=== PATIENT | female | born 1945 | race Caucasian/White ===

== ENCOUNTER 2017-01-05 15:07 | Inpatient (IN) ==
--- NOTE | 2017-01-05 15:44 | Emergency Department Note ---
Disposition Clinical Impression: TIA (transient ischemic attack) Qualifiers: Transient cerebral ischemia type: unspecified Qualified Code(s): G45.9 - Transient cerebral ischemic attack, unspecified Disposition: Admitted As Inpatient Condition: Good Neuro HPI - General Chief Complaint: ED Neuro Symptoms/Deficit Stated Complaint: numbness to left side Time Seen by Provider: 01/05/17 15:08 Source: patient, EMS Limitations: no limitations Nursing Notes Reviewed: Yes Vital Signs Reviewed: Yes - History of Present Illness HPI Narrative: Patient presents by EMS for evaluation of slurred speech and left-sided weakness causing her to have difficulty of ambulation. This was noted by the at -home nurse that was taking care of her. EMS arrived and symptoms of artery started to begin to resolve. Patient states that she has no current symptoms. Patient states she has had some exertional dyspnea over the last several months that has not been better worse with anything in particular. She complains of fatigue is also been going on and getting progressively worse. Patient has no history of TIA. Last cardiac evaluation she states was proximally 2 years ago with cardiac catheter. At this time the patient will go further evaluation for possible TIA. Will check TSH as well as cardiac enzymes. - Related Data Home Medications: Home Medications Medication Instructions Recorded Confirmed Albuterol Sulfate [Ventolin Hfa] 2 puff IH Q4H 01/05/17 01/05/17 Aspirin Enteric Coated [Aspirin EC] 81 mg PO DAILY 01/05/17 01/05/17 Carisoprodol [Soma] 350 mg PO BID PRN 01/05/17 01/05/17 Cholecalciferol (D-3) [Vitamin D] 1,000 unit PO DAILY 01/05/17 01/05/17 Cyanocobalamin (Vitamin B-12) 1,000 mcg PO DAILY 01/05/17 01/05/17 [Vitamin B-12] Lisinopril/Hydrochlorothiazide 1 each PO DAILY 01/05/17 01/05/17 [Zestoretic 20-12.5 mg Tablet] Multivit with Calcium,Iron,Min 1 each PO DAILY 01/05/17 01/05/17 [One Daily Women's] [place]-3/Dha/Epa/Fish Oil [Fish Oil 1 each PO DAILY 01/05/17 01/05/17 1,000 mg Softgel] OxyCODONE/APAP 5/325 [Percocet 1 each PO Q8H PRN 01/05/17 01/05/17 5/325 MG] Potassium Citrate [Urocit-K] 15 meq PO BID 01/05/17 01/05/17 diazePAM [Valium] 10 mg PO BID PRN 01/05/17 01/05/17 Allergies/Adverse Reactions: Allergies Allergy/AdvReac Type Severity Reaction Status Date / Time acetaminophen AdvReac Mild Nausea Verified 01/05/17 21:44 [From Darvocet-N] gabapentin [From Neurontin] AdvReac Mild See Verified 01/05/17 21:43 Comments propoxyphene AdvReac Mild Nausea Unverified 01/05/17 21:44 Review of Systems: GENERAL: ~Fatigue No weight change, change in appetite, thirst, fever or chills. HEENT: ~No headache or blurred vision. CARDIOPULMONARY: ~No chest pain, palpitations or shortness of breath. GASTROINTESTINAL: ~No anorexia, nausea or vomiting. GENITOURINARY: ~No dysuria or pyuria. ENDOCRINE: ~No goiter, lethargy or heat/cold intolerance. HEMATOLOGY/ONCOLOGY: ~No pallor, bruising or bleeding. MUSCULOSKELETAL: ~No change in strength. No swelling. NEUROLOGIC: ~Slurred speech and left-sided weakness causing difficulty with ambulation. No headache or loss of consciousness. PSYCHIATRIC: ~No change in personality, affect or depression. Past Medical History - Past Medical History Medical history: Reports: COPD, fibromyalgia, other Psychiatric history: Reports: anxiety, depression - Social History Smoking Status: Current every day smoker Alcohol use: Reports: none Drug use: Reports: marijuana Physical Exam General: Well appearing, nontoxic, no acute distress Head: Normocephalic Atraumatic Eyes: PERRL, EOMI ENT: Airway patent, no stridor Neck: supple, no meningismus Chest: Lungs clear to auscultation bilateral Cardiac: Regular rate and rhythm, no murmurs, rubs or gallops Abdomen: soft, nontender, nondistended; no guarding, rebound, or tenderness to percussion Musculoskeletal: Calves symmetric, nontender, no palpable cord Skin: No rash, normal skin tone Neuro: Alert and Oriented to person, place, and time; No focal deficit, CN 2-12 symmetric and intact - General Limitations: no limitations General appearance: alert, in no apparent distress Course - Consultations Consultation #1: Discussed with Dr. Major. Patient accepted for admission. Vital Signs Temperature 98 F 01/05/17 15:08 Pulse Rate 83 01/05/17 15:08 Respiratory Rate 18 01/05/17 15:08 Blood Pressure 136/91 01/05/17 15:08 O2 Sat by Pulse Oximetry 93 01/05/17 15:08 Temperature 97.7 F 01/05/17 20:56 Pulse Rate 81 01/05/17 20:56 Respiratory Rate 16 01/05/17 20:56 Blood Pressure 168/90 01/05/17 20:56 O2 Sat by Pulse Oximetry 97 01/05/17 20:56 Oxygen Delivery Oxygen Delivery Room Air Neuro Symptoms/Deficit - Lab Data Result diagrams: 01/05/17 15:42 01/05/17 15:42 Lab Results 01/05/17 01/05/17 01/05/17 Range/Units 15:33 15:42 15:42 WBC 9.5 (4.3-11.1) K/mcL RBC 5.16 H (3.82-4.97) M/mcL Hgb 15.9 H (11.5-15.4) g/dL Hct 47.8 H (35.3-44.9) % MCV 92.6 (83.0-100.0) fL MCH 30.8 (28.0-33.3) pg MCHC 33.3 (31.6-35.5) g/dL RDW 13.5 (11.5-14.5) % Plt Count 221 (140-400) K/mcL MPV 10.2 (9.4-12.4) fL Immature Gran % 0.4 (0-4) % Seg Neutrophils % 64.1 % Lymphocytes % 28.3 % Monocytes % 5.1 % Eosinophils % 1.5 % Basophils % 0.6 % Neutrophils # 6.1 (1.6-8.9) K/mcL Lymphocytes # 2.7 (0.6-4.6) K/mcL Monocytes # 0.5 (0.0-1.3) K/mcL Eosinophils # 0.1 (0.0-0.6) K/mcL Basophils # 0.1 (0.0-0.2) K/mcL PT 11.3 (9.4-12.1) Seconds INR 1.1 APTT 32.1 (26.0-36.0) Seconds Sodium (136-145) mEq/L Potassium (3.5-4.5) mEq/L Chloride (98-109) mEq/L Carbon Dioxide (19-29) mEq/L BUN (7-20) mg/dL Creatinine (0.57-1.11) mg/dL Est GFR ( Amer) (> 60) Est GFR (Non-Af Amer) (> 60) BUN/Creatinine Ratio (6-26) Glucose (70-99) mg/dL POC Glucose 97 H (58-89) Calculated Osmolality (280-300) Calcium (8.6-10.8) mg/dL Troponin I (0-0.03) ng/mL B-Natriuretic Peptide (0-100) pg/mL TSH (0.350-4.840) mcIU/mL Urine Color (Yellow) Urine Clarity (Clear) Urine pH (5.0-8.0) pH Units Ur Specific [place] (1.010-1.025) Urine Protein (Neg-Trace) mg/dL Urine Glucose (UA) (Normal) mg/dL Urine Ketones (Negative) mg/dL Urine Blood (Negative) Urine Nitrite (Negative) Urine Bilirubin (Negative) Urine Urobilinogen (Normal) mg/dL Ur Leukocyte Esterase (Negative) Ur Culture Indicated? (NO) 01/05/17 01/05/17 01/05/17 Range/Units 15:42 15:42 15:44 WBC (4.3-11.1) K/mcL RBC (3.82-4.97) M/mcL Hgb (11.5-15.4) g/dL Hct (35.3-44.9) % MCV (83.0-100.0) fL MCH (28.0-33.3) pg MCHC (31.6-35.5) g/dL RDW (11.5-14.5) % Plt Count (140-400) K/mcL MPV (9.4-12.4) fL Immature Gran % (0-4) % Seg Neutrophils % % Lymphocytes % % Monocytes % % Eosinophils % % Basophils % % Neutrophils # (1.6-8.9) K/mcL Lymphocytes # (0.6-4.6) K/mcL Monocytes # (0.0-1.3) K/mcL Eosinophils # (0.0-0.6) K/mcL Basophils # (0.0-0.2) K/mcL PT (9.4-12.1) Seconds INR APTT (26.0-36.0) Seconds Sodium 139 (136-145) mEq/L Potassium 4.1 (3.5-4.5) mEq/L Chloride 103 (98-109) mEq/L Carbon Dioxide 27 (19-29) mEq/L BUN 15 (7-20) mg/dL Creatinine 1.16 H (0.57-1.11) mg/dL Est GFR ( Amer) 56 L (> 60) Est GFR (Non-Af Amer) 46 L (> 60) BUN/Creatinine Ratio 13 (6-26) Glucose 96 (70-99) mg/dL POC Glucose (58-89) Calculated Osmolality 289 (280-300) Calcium 10.2 (8.6-10.8) mg/dL Troponin I 0.00 (0-0.03) ng/mL B-Natriuretic Peptide 17 (0-100) pg/mL TSH 1.264 (0.350-4.840) mcIU/mL Urine Color (Yellow) Urine Clarity (Clear) Urine pH (5.0-8.0) pH Units Ur Specific [place] (1.010-1.025) Urine Protein (Neg-Trace) mg/dL Urine Glucose (UA) (Normal) mg/dL Urine Ketones (Negative) mg/dL Urine Blood (Negative) Urine Nitrite (Negative) Urine Bilirubin (Negative) Urine Urobilinogen (Normal) mg/dL Ur Leukocyte Esterase (Negative) Ur Culture Indicated? (NO) 01/05/17 Range/Units 18:00 WBC (4.3-11.1) K/mcL RBC (3.82-4.97) M/mcL Hgb (11.5-15.4) g/dL Hct (35.3-44.9) % MCV (83.0-100.0) fL MCH (28.0-33.3) pg MCHC (31.6-35.5) g/dL RDW (11.5-14.5) % Plt Count (140-400) K/mcL MPV (9.4-12.4) fL Immature Gran % (0-4) % Seg Neutrophils % % Lymphocytes % % Monocytes % % Eosinophils % % Basophils % % Neutrophils # (1.6-8.9) K/mcL Lymphocytes # (0.6-4.6) K/mcL Monocytes # (0.0-1.3) K/mcL Eosinophils # (0.0-0.6) K/mcL Basophils # (0.0-0.2) K/mcL PT (9.4-12.1) Seconds INR APTT (26.0-36.0) Seconds Sodium (136-145) mEq/L Potassium (3.5-4.5) mEq/L Chloride (98-109) mEq/L Carbon Dioxide (19-29) mEq/L BUN (7-20) mg/dL Creatinine (0.57-1.11) mg/dL Est GFR ( Amer) (> 60) Est GFR (Non-Af Amer) (> 60) BUN/Creatinine Ratio (6-26) Glucose (70-99) mg/dL POC Glucose (58-89) Calculated Osmolality (280-300) Calcium (8.6-10.8) mg/dL Troponin I (0-0.03) ng/mL B-Natriuretic Peptide (0-100) pg/mL TSH (0.350-4.840) mcIU/mL Urine Color Yellow (Yellow) Urine Clarity Clear (Clear) Urine pH 6.0 (5.0-8.0) pH Units Ur Specific [place] 1.014 (1.010-1.025) Urine Protein Negative (Neg-Trace) mg/dL Urine Glucose (UA) Normal (Normal) mg/dL Urine Ketones Negative (Negative) mg/dL Urine Blood Negative (Negative) Urine Nitrite Negative (Negative) Urine Bilirubin Negative (Negative) Urine Urobilinogen Normal (Normal) mg/dL Ur Leukocyte Esterase Negative (Negative) Ur Culture Indicated? NO (NO) TPA Checklist - LKW: 3-4.5 hrs Add. Warnings/Precautions Patient/family understanding: The patient/family members have been counseled and understood the risk, benefit , and alternatives of treatment. Attestation Statement - Attestation Attestation: I, Yuriy Carr, examined this patient and my medical decision-making was reviewed with the CADMIUM PLATER/PA/Advanced Practice Nurse/Resident Physician. I agree with the documented findings, disposition and treatment plan as described except to the extent set forth below. 71-year-old female presents emergency Department with concerns of increasing weakness and fatigue. Patient is a poor historian however home health nurse called EMS secondary to possible slurred speech and difficulty with ambulation. Patient denies slurred speech or if coldly with her gait. EMS states that patient was able to ambulate to the EMS truck without difficulty. Patient reports she has been increasingly fatigued and dyspneic on exertion over the past few days prior to arrival. Patient is unable to recall her last cardiac evaluation. We will obtain CT of the head for the slurred speech, troponin and EKG for evaluation of the weakness and fatigue. Patient will likely be admitted to the hospital pending further evaluation.
[2017-01-05 15:55] LABS: Basophils # 0.1 K/mcL (0.0-0.2); Basophils % 0.6 %; Eosinophils # 0.1 K/mcL (0.0-0.6); Eosinophils % 1.5 %; Hematocrit 47.8 % (35.3-44.9); Hemoglobin 15.9 g/dL (11.5-15.4); Immature Granulocytes % 0.4 % (0-4); Lymphocytes # 2.7 K/mcL (0.6-4.6); Lymphocytes % 28.3 %; Mean Corpuscular HGB Conc 33.3 g/dL (31.6-35.5); Mean Corpuscular Hemoglobin 30.8 pg (28.0-33.3); Mean Corpuscular Volume 92.6 fL (83.0-100.0); Mean Platelet Volume 10.2 fL (9.4-12.4); Monocytes # 0.5 K/mcL (0.0-1.3); Monocytes % 5.1 %; Neutrophils # 6.1 K/mcL (1.6-8.9); Platelet Count 221 K/mcL (140-400); Red Blood Count 5.16 M/mcL (3.82-4.97); Red Cell Distribution Width 13.5 % (11.5-14.5); Segmented Neutrophils % 64.1 %
[2017-01-05 16:02] LABS: INR 1.1; Prothrombin Time 11.3 Seconds (9.4-12.1)
[2017-01-05 16:05] LABS: Activated Partial Thrombo Time 32.1 Seconds (26.0-36.0)
[2017-01-05 16:08] LABS: Calcium 10.2 mg/dL (8.6-10.8); Potassium 4.1 mEq/L (3.5-4.5)
[2017-01-05 17:43] LABS: Thyroid Stimulating Hormone 1.264 mcIU/mL (0.350-4.840)
[2017-01-05 18:39] LABS: Bilirubin,Urine Negative (Negative); Blood,Urine Negative (Negative); Clarity,Urine Clear (Clear); Color,Urine Yellow (Yellow); Glucose,Urine (UA) Normal (Normal); Ketones,Urine Negative (Negative); Leukocyte Esterase,Urine Negative (Negative); Nitrite,Urine Negative (Negative); Protein,Urine Negative (Neg-Trace); Specific Gravity,Urine 1.014 (1.010-1.025); Urobilinogen,Urine Normal (Normal)
[2017-01-05] MEDS ORDERED: Naloxone 0.4 MG/ML INJ IVP PRN (19:34)
[2017-01-05] MEDS ORDERED: *HR* OxyCODONE Immed Rel 5 MG TABLET PO PRN (20:19)
[2017-01-05] MEDS ORDERED: Ondansetron 4 MG/2 ML VIAL IVP PRN (20:19)
--- NOTE | 2017-01-05 20:22 | Internal Med History&Physical ---
Addendum entered and electronically signed by Benson Conner DO 01/05/17 22:15: Physical exam: AOx3, NAD, resting comfortably. Neuro: NIH score 0. No sensory or motor deficits. CN II-XII intact Cardio: RRR, no murmurs Respiratory: Mild wheezing diffusely, worse on left. Psych: Appropriate mood and behavior. Original Note: <Benson Conner - Last Filed: 01/05/17 22:14> Date of Encounter: 01/05/17 Time of Encounter: 20:22 Assessment and Plan (1) TIA (transient ischemic attack) Current visit: Yes Status: Acute - Onset of dysarthria, numbness and possible left sided weakness began 2 days ago, out of window for thrombolysis - CT head in ED was negative for acute process. MRI pending. - Echocardiogram, carotid US, lipid panel pending - Given full dose asa in ED. Continue ASA, statin. Holding BP meds, allowing for permissive HTN - PT/OT consulted, bedside swallow pending. Qualifiers: Transient cerebral ischemia type: unspecified Qualified Code(s): G45.9 - Transient cerebral ischemic attack, unspecified (2) HTN (hypertension) Current visit: Yes Status: Chronic - BP wnl upon presentation. Systolic 160s during time of interview. - Holding BP meds and allowing for permissive HTN Qualifiers: Hypertension type: essential hypertension Qualified Code(s): I10 - Essential (primary) hypertension (3) CAD (coronary artery disease) Current visit: Yes Status: Chronic - History of stress test and LHC without stent placement - No chest pain reported. - EKG ordered. - Continue ASA, statin for TIA above. Qualifiers: Coronary Disease-Associated Artery/Lesion type: [place] artery [place] vs. transplanted heart: [place] heart Associated angina: without angina Qualified Code(s): I25.10 - Atherosclerotic heart disease of [place] coronary artery without angina pectoris (4) COPD (chronic obstructive pulmonary disease) Current visit: Yes Status: Chronic Reported history of COPD - Sees a library media assistant in [place] - Dyspnea on exertion, however is tolerating room air speaking in full sentences during time of interview. - Continue home meds, O2 titration as needed. Qualifiers: COPD type: emphysema Emphysema type: unspecified Qualified Code(s): J43.9 - Emphysema, unspecified (5) Fibromyalgia Current visit: Yes Status: Chronic - Pain control as needed during admission. - Management as outpatient. (6) HLD (hyperlipidemia) Current visit: Yes Status: Acute Reported history of HLD - Admits to non compliance on statin due to side effects - Lipid panel pending, high dose statin for TIA Qualifiers: Hyperlipidemia type: unspecified Qualified Code(s): E78.5 - Hyperlipidemia , unspecified (7) DVT prophylaxis Current visit: Yes Status: Acute Heparin 5000 units q8 Internal Medicine - H&P: HPI Chief complaint: slurred speech Admitted From: Emergency Dept Plans for Post Hospital Care: Home History of present illness: Ms. Whipple is a 71 year old female who presents to ED with a complaint of slurred speech which was noticed by her home health aide this morning as well as sunday. She states that she did not notice that anything was wrong. She does complain of some left sided facial numbness which has been present for some time. She also complains of diffuse pain including the chest and left shoulder but attributes this to her fibromyalgia. She also complains of some SOB on exertion, but this is at her baseline due to COPD. She also admits to lightheadedness intermittently, and infrequent palpitations. She states her neurological symptoms resolved on their own without treatment upon arriving to the ED. She denies any symptoms of fevers, chills, recent illness, nausea, vomiting, abdominal pain, dysuria. Does have some complaint of constipation. She also admits to medication non compliance for her statin and BP meds as she does not like how they make her feel. She has had a cardiac workup in the past, including stress test and LHC without stents placed and reports they were normal , however she does not remember when. In ED, CT head was negative for acute process. Vital signs wnl. Labs at baseline. Past Med Surg Social Fam HX - Past Medical History Medical history: cancer (kidney s/p resection), COPD, coronary artery disease, fibromyalgia, hyperlipidemia, other Psychiatric history: anxiety, depression - Past Surgical History Surgical History: hysterectomy - Social History Smoking Status: Current every day smoker Alcohol use: none Drug use: marijuana - Family History Sister Hx Family Endocrine Disorder: Yes (dm) Internal Medicine - H&P: Meds Albuterol Sulfate [Ventolin Hfa] 2 puff IH Q4H 01/05/17 [History] Aspirin Enteric Coated [Aspirin EC] 81 mg PO DAILY 01/05/17 [History] Carisoprodol [Soma] 350 mg PO BID PRN 01/05/17 [History] Cholecalciferol (D-3) [Vitamin D] 1,000 unit PO DAILY 01/05/17 [History] Cyanocobalamin (Vitamin B-12) [Vitamin B-12] 1,000 mcg PO DAILY 01/05/17 [ History] Lisinopril/Hydrochlorothiazide [Zestoretic 20-12.5 mg Tablet] 1 each PO DAILY [History] Multivit with Calcium,Iron,Min [One Daily Women's] 1 each PO DAILY 01/05/17 [ History] [place]-3/Dha/Epa/Fish Oil [Fish Oil 1,000 mg Softgel] 1 each PO DAILY 01/05/17 [ History] OxyCODONE/APAP 5/325 [Percocet 5/325 MG] 1 each PO Q8H PRN 01/05/17 [History] Potassium Citrate [Urocit-K] 15 meq PO BID 01/05/17 [History] diazePAM [Valium] 10 mg PO BID PRN 01/05/17 [History] 3 Allergy/AdvReac Type Severity Reaction Status Date / Time acetaminophen AdvReac Mild Nausea Verified 01/05/17 21:44 [From Darvocet-N] gabapentin [From Neurontin] AdvReac Mild See Verified 01/05/17 21:43 Comments propoxyphene AdvReac Mild Nausea Unverified 01/05/17 21:44 All Systems PM: A 10-system review of systems was performed and is negative for pertinent findings except as documented above in the HPI. - Constitutional Constitutional: fatigue, lethargy, no anorexia, no chills, no fever(s), no weakness - EENT Eyes: no change in vision - Cardiovascular Cardiovascular ROS IM: dyspnea on exertion, palpitations, no chest pain, no diaphoresis, no dyspnea, no edema - Respiratory Respiratory: dyspnea on exertion, no cough, no dyspnea - Gastrointestinal Gastrointestinal: constipation, no abdominal pain, no change in bowel habits, no diarrhea, no nausea, no vomiting - Genitourinary Genitourinary: no dysuria - Musculoskeletal Musculoskeletal ROS IM: no numbness, no tingling - Neurological Neurological ROS: abnormal speech, dizziness, no abnormal gait, no confusion, no loss of vision, no tingling, no weakness - Constitutional Vitals: Temp Pulse Resp BP Pulse Ox 98 F 73 16 126/87 94 01/05/17 15:08 01/05/17 16:31 01/05/17 16:31 01/05/17 16:31 01/05/17 16:31 Internal Med - H&P Results - Labs CBC & Chem 7: 01/05/17 15:42 01/05/17 15:42 <Nic Mckinney - Last Filed: 01/05/17 23:41> Date of Encounter: 01/05/17 All Systems PM: A 10-system review of systems was performed and is negative for pertinent findings except as documented above in the HPI. - Constitutional Vitals: Temp Pulse Resp BP Pulse Ox 97.7 F 89 16 128/83 97 01/05/17 20:56 01/05/17 23:13 01/05/17 20:56 01/05/17 23:13 01/05/17 20:56 Internal Med - H&P Results - Labs CBC & Chem 7: 01/05/17 15:42 01/05/17 15:42 - Attending Attestation I examined this patient and my medical decision-making was reviewed with the RETORT FURNACE HELPER. I agree with the documented findings, disposition and treatment plan as described except to the extent set forth below. Patient is a 71-year-old female with past medical history of COPD, coronary artery disease, probably moderate, hyperlipidemia, anxiety and depression. She is a current daily smoker. She presents to the ED with complaints of slurred speech and left-sided facial numbness. Initial workup including CT head is negative. MRI of the brain was also done and is negative. Patient's symptoms are now completely resolved. Patient is being admitted for TIA. She will need to continue aspirin and statin. We will also restart her home medications the morning. No other acute events or complaints. Heart rate 89, blood pressure 128/83, O2 97% on room air. Heart S1 and S2 positive. Lungs: Good air entry no wheeze or crackles. Abdomen soft nontender no masses or guarding. Neurological awake and alert, no focal neurological deficits, cranial nerves intact.
[2017-01-05] MEDS ORDERED: Carisoprodol 350 MG TABLET PO PRN (20:44)
[2017-01-05] MEDS: *HR* Heparin 5,000 UNIT/ML VIAL SQ SCH (22:10)
[2017-01-05] MEDS: diazePAM 10 MG TABLET PO PRN (22:10)
[2017-01-06 05:26] LABS: Basophils % 0.5 %; Eosinophils # 0.2 K/mcL (0.0-0.6); Eosinophils % 1.8 %; Hematocrit 45.5 % (35.3-44.9); Hemoglobin 15.5 g/dL (11.5-15.4); Immature Granulocytes % 0.2 % (0-4); Lymphocytes # 3.5 K/mcL (0.6-4.6); Lymphocytes % 39.7 %; Mean Corpuscular HGB Conc 34.1 g/dL (31.6-35.5); Mean Corpuscular Hemoglobin 31.5 pg (28.0-33.3); Mean Corpuscular Volume 92.5 fL (83.0-100.0); Mean Platelet Volume 10.9 fL (9.4-12.4); Monocytes # 0.5 K/mcL (0.0-1.3); Monocytes % 5.5 %; Neutrophils # 4.6 K/mcL (1.6-8.9); Platelet Count 219 K/mcL (140-400); Red Blood Count 4.92 M/mcL (3.82-4.97); Red Cell Distribution Width 13.5 % (11.5-14.5); Segmented Neutrophils % 52.3 %
[2017-01-06 05:42] LABS: BUN/Creatinine Ratio 15 (6-26); Blood Urea Nitrogen 16 mg/dL (7-20); Calcium 9.4 mg/dL (8.6-10.8); Carbon Dioxide 27 mEq/L (19-29); Chloride 106 mEq/L (98-109); Chol/HDL Ratio 4.9 (0-4.9); Cholesterol 192 mg/dL (< 200); Glucose 105 mg/dL (70-99); HDL Cholesterol 39 mg/dL (40-59); LDL Cholesterol,Calculated 121 mg/dL (0-99); Osmolality,Calculated 296 (280-300); Potassium 3.2 mEq/L (3.5-4.5); Sodium 142 mEq/L (136-145); Triglycerides 158 mg/dL (< 150); eGFR For African Americans > 60 (> 60); eGFR For Non-African Americans 50 (> 60)
[2017-01-06] MEDS: *HR* Heparin 5,000 UNIT/ML VIAL SQ SCH ×2 (05:47→15:44)
[2017-01-06] MEDS: diazePAM 10 MG TABLET PO PRN (08:31)
[2017-01-06] MEDS ORDERED: Aspirin 81 MG TAB.CHEW PO SCH (09:00)
[2017-01-06] MEDS ORDERED: Nicotine 14 MG PATCH.TD24 TD SCH (09:15)
[2017-01-06] MEDS ORDERED: Magnesium Sulfate 2 GM in D5% in Water 100 ML IVPB ONE (14:38)
--- NOTE | 2017-01-06 14:42 | Discharge Summary ---
Date of Encounter: 01/06/17 Time of Encounter: 08:40 - Discharge Diagnosis (1) TIA (transient ischemic attack) Priority: Primary Status: Acute Comments: Transient ischemic attack - with dysarthria and left-sided weakness and numbness about 48 hours prior to admission - symptoms have completely resolved Continue Aspirin, Lipitor CT head - no acute intracranial abnormality MRI brain - no acute infarct Echocardiogram - LVEF 55-60%, mild LV diastolic dysfunction, normal RV size and function EKG - normal sinus rhythm with no acute ST-T changes Troponin - negative Carotid Doppler - nonstenotic plaque bilaterally Chest x-ray - no acute cardiopulmonary process Advised to return if symptoms worsen, follow up with primary care physician Qualifiers: Transient cerebral ischemia type: unspecified Qualified Code(s): G45.9 - Transient cerebral ischemic attack, unspecified (2) HTN (hypertension) Priority: Secondary Status: Chronic Comments: Essential hypertension, controlled, monitor Continue home dose of Lisinopril/HCTZ Qualifiers: Hypertension type: essential hypertension Qualified Code(s): I10 - Essential (primary) hypertension (3) CAD (coronary artery disease) Priority: Secondary Status: Chronic Comments: Coronary artery disease, history of LHC without stent placement, stable Continue Aspirin, Lipitor EKG - sinus rhythm with no acute ST-T changes Troponin - negative Qualifiers: Coronary Disease-Associated Artery/Lesion type: [place] artery [place] vs. transplanted heart: [place] heart Associated angina: without angina Qualified Code(s): I25.10 - Atherosclerotic heart disease of [place] coronary artery without angina pectoris (4) COPD (chronic obstructive pulmonary disease) Priority: Secondary Status: Chronic Comments: COPD, stable, not in exacerbation Continue Ventolin HFA as needed Qualifiers: COPD type: emphysema Emphysema type: unspecified Qualified Code(s): J43.9 - Emphysema, unspecified (5) HLD (hyperlipidemia) Priority: Primary Status: Chronic Comments: Continue Lipitor Qualifiers: Hyperlipidemia type: unspecified Qualified Code(s): E78.5 - Hyperlipidemia , unspecified (6) Tobacco abuse Priority: Secondary Status: Chronic Comments: Counseled about cessation, nicotine patch (7) Fibromyalgia Priority: Secondary Status: Chronic - Discharge Medications Prescriptions: Aspirin Enteric Coated [Aspirin EC] 81 mg PO DAILY #30 tablet. Atorvastatin Calcium [Lipitor] 20 mg PO HS #30 tablet Home Medications: Albuterol Sulfate [Ventolin Hfa] 2 puff IH Q4H 01/05/17 [History] Carisoprodol [Soma] 350 mg PO BID PRN 01/05/17 [History] Cholecalciferol (D-3) [Vitamin D] 1,000 unit PO DAILY 01/05/17 [History] Cyanocobalamin (Vitamin B-12) [Vitamin B-12] 1,000 mcg PO DAILY 01/05/17 [ History] Lisinopril/Hydrochlorothiazide [Zestoretic 20-12.5 mg Tablet] 1 each PO DAILY [History] Multivit with Calcium,Iron,Min [One Daily Women's] 1 each PO DAILY 01/05/17 [ History] Almo-3/Dha/Epa/Fish Oil [Fish Oil 1,000 mg Softgel] 1 each PO DAILY 01/05/17 [ History] OxyCODONE/APAP 5/325 [Percocet 5/325 MG] 1 each PO Q8H PRN 01/05/17 [History] Potassium Citrate [Urocit-K] 15 meq PO BID 01/05/17 [History] diazePAM [Valium] 10 mg PO BID PRN 01/05/17 [History] Aspirin Enteric Coated [Aspirin EC] 81 mg PO DAILY #30 tablet. 01/06/17 [Rx] Atorvastatin Calcium [Lipitor] 20 mg PO HS #30 tablet 01/06/17 [Rx] Allergies/Adverse Reactions: 3 Allergy/AdvReac Type Severity Reaction Status Date / Time acetaminophen AdvReac Mild Nausea Verified 01/05/17 21:44 [From Darvocet-N] gabapentin [From Neurontin] AdvReac Mild See Verified 01/05/17 21:43 Comments propoxyphene AdvReac Mild Nausea Unverified 01/05/17 21:44 Procedures/tests Complete & Pending: Procedures Performed prior 72 hours Category Date Time Status ECG 12 lead ECG [ECG] Routine Y 01/05/17 20:43 Ordered EV carotid duplex imaging BI Routine Y 01/06/17 07:00 Completed Date of admission: 01/05/17 19:42 Primary care physician: Bryan Mai MD Consults: 01/05/17 20:21 Consult to Occupational Therapy [CONS] Routine Comment: Evaluate, develop and implement POC Reason for Consult: weakness Consult to Physical Therapy [CONS] Routine Comment: Evaluate, develop and implement POC Reason for Consult: weakness Anticipated date of discharge: 01/06/17 - Patient Status Disposition: Home, Self-Care Condition: Good Functional capacity at discharge: independent ambulation Overall status at discharge: patient is back to baseline - Discharge Instructions Instructions: Aspirin (By mouth), Atorvastatin (By mouth), Hypomagnesemia (DC) Follow Up With: Bryan Mai MD [Primary Care Provider] - (Appointment web requested. Office will contact patient at home to schedule appointment. ) - Diet and Activity Activity: increase activity as tolerated, resume usual activities as tolerated Diet: low fat, low cholesterol, low salt diet Hospital course: Ms. Whipple is a 71 year old female with past medical history of COPD, coronary artery disease, fibromyalgia, hyperlipidemia, anxiety and depression. She presented to the ED with complaints of slurred speech and left-sided facial numbness. She also complains of diffuse pain in the chest and left shoulder and stated that this was due to her fibromyalgia. Patient also initially complained of some mild shortness of breath. Complained of lightheadedness intermittently. Symptoms resolved quickly. Initial CT of the head is negative for any acute process. MRI of the brain did not show any acute infarct. Echocardiogram revealed LVEF 5560% with mild LV diastolic dysfunction. Patient was continued on aspirin and Lipitor. EKG shows normal sinus rhythm with no acute ST changes. Troponin is negative. Carotid Doppler shows nonstenotic plaque bilaterally. Chest x-ray does not show any acute process. Patient was continued on her home medications for hypertension including lisinopril and HCTZ. Patient was advised to continue Ventolin HFA for her COPD as needed. She has been counseled on smoking cessation. She has been advised to continue aspirin and Lipitor. Patient attributes all her symptoms to fibromyalgia and wants to continue her pain medication at home as well. She has been explained about her condition and plan of care in detail. She understood and agreed. No unanswered questions. Patient did not have any other acute events or complications during her stay. She is tolerating oral diet well and ambulating well. Patient is being discharged in stable condition. Time spent discussing smoking cessation with patient: 3 to 10 minutes - Time Spent with Patient Total time spent providing and/or coordinating discharge services: Less than 30 minutes - Constitutional Vitals: Temp Pulse Resp BP Pulse Ox 98.0 F 76 16 111/74 97 10/28/17 11:25 01/06/17 11:25 01/06/17 11:35 01/06/17 11:25 01/06/17 11:35 General appearance: Present: cooperative, A&O X 3, pleasant, no acute distress, underweight, answers questions appropriately - Head Head exam: Present: atraumatic - Eye Eye exam: Present: EOMI - ENT ENT exam: Present: mucous membranes moist - Respiratory Respiratory exam: Present: CTAB. Absent: rales, rhonchi, wheezes, tachypnea - Cardiovascular Cardiovascular exam: Present: RRR, +S1, +S2 - GI/Abdominal GI/Abdominal exam: Present: soft. Absent: distended, firm, guarding, tenderness - Extremities Exam Extremities exam: Present: radial pulses palpable and symmetrical. Absent: calf tenderness, cyanotic, pedal edema - Neurological Exam Neurological exam: Present: alert, CN II-XII intact, oriented X3, no focal deficits. Absent: facial droop, speech deficit
[2017-01-06 14:58] VITALS: BP 126/80
[2017-01-06] MEDS ORDERED: Multivit/Ca/Min/Fe/FA 1 TAB TABLET PO SCH (15:00)
[2017-01-06] MEDS ORDERED: Lisinopril-HCTZ 20-12.5mg TABLET PO SCH (15:00)
[2017-01-06] MEDS ORDERED: Cyanocobalamin (B-12) 1,000 MCG TABLET PO SCH (15:00)
--- NOTE | 2017-01-08 16:56 | Electrocardiograph Report ---
[place] [id number] Test Date: 2017-01-05 Pat Name: Jody Whipple Department: 113 Room: 3B Gender: F Dish Person: : 1945 Requested By: Benson Conner Order Number: [id number] Reading MD: Xuan Romero Measurements Intervals [place] Rate: 65 P: 71 MS: 151 QRS: 50 QRSD: 87 T: 65 QT: 410 QTc: 422 Interpretive Statements SINUS RHYTHM Electronically Signed On 01-08-2017 16:54:55 EDT by Xuan Romero
== END 2017-01-06 17:30 | disposition home or self-care (01) | DRG 69 ==
LOC: EMEROO 15:07 → 3BNU 15:07
PROVIDERS: ADMIT Family Medicine; ATTEND Registered Nurse

== ENCOUNTER 2017-04-08 20:21 | Inpatient (IN) ==
--- NOTE | 2017-04-08 20:23 | Emergency Department Note ---
Disposition Clinical Impression: Acute exacerbation of chronic obstructive airways disease, Cough Disposition: Admitted As Inpatient Condition: Good General Adult HPI - General Chief complaint: ED Shortness of Breath/Dyspnea Stated complaint: difficulty in breathing Time Seen by Provider: 04/08/17 20:22 - Related Data Home Medications Medication Instructions Recorded Confirmed Albuterol Sulfate [Ventolin Hfa] 2 puff IH Q4H 01/05/17 01/05/17 Carisoprodol [Soma] 350 mg PO BID PRN 01/05/17 01/05/17 Cholecalciferol (D-3) [Vitamin D] 1,000 unit PO DAILY 01/05/17 01/05/17 Cyanocobalamin (Vitamin B-12) 1,000 mcg PO DAILY 01/05/17 01/05/17 [Vitamin B-12] Lisinopril/Hydrochlorothiazide 1 each PO DAILY 01/05/17 01/05/17 [Zestoretic 20-12.5 mg Tablet] Multivit with Calcium,Iron,Min 1 each PO DAILY 01/05/17 01/05/17 [One Daily Women's] [place]-3/Dha/Epa/Fish Oil [Fish Oil 1 each PO DAILY 01/05/17 01/05/17 1,000 mg Softgel] OxyCODONE/APAP 5/325 [Percocet 1 each PO Q8H PRN 01/05/17 01/05/17 5/325 MG] Potassium Citrate [Urocit-K] 15 meq PO BID 01/05/17 01/05/17 diazePAM [Valium] 10 mg PO BID PRN 01/05/17 01/05/17 Previous Rx's Medication Instructions Recorded Aspirin Enteric Coated [Aspirin EC] 81 mg PO DAILY #30 tablet. 01/06/17 Atorvastatin Calcium [Lipitor] 20 mg PO HS #30 tablet 01/06/17 Allergies Allergy/AdvReac Type Severity Reaction Status Date / Time acetaminophen AdvReac Mild Nausea Verified 01/05/17 21:44 [From Darvocet-N] gabapentin [From Neurontin] AdvReac Mild See Verified 01/05/17 21:43 Comments propoxyphene AdvReac Mild Nausea Verified 04/08/17 20:55 Past Medical History - Past Medical History Medical history: Reports: COPD, fibromyalgia, other Surgical history: Reports: hysterectomy Psychiatric history: Reports: anxiety, depression - Social History Smoking Status: Current every day smoker Smokeless Tobacco Status: No Alcohol use: Reports: none Drug use: Reports: marijuana Course Vital Signs Temperature 100 F H 04/08/17 20:22 Pulse Rate 110 04/08/17 20:22 Respiratory Rate 24 04/08/17 20:22 Blood Pressure 147/90 04/08/17 20:22 O2 Sat by Pulse Oximetry 94 04/08/17 20:22 Temperature 99.6 F 04/08/17 22:55 Pulse Rate 100 04/08/17 22:55 Respiratory Rate 16 04/08/17 22:55 Blood Pressure 98/58 04/08/17 22:55 O2 Sat by Pulse Oximetry 94 04/08/17 23:32 Oxygen Delivery Oxygen Delivery Nasal Cannula Medical Decision Making - Lab Data Result diagrams: 04/08/17 20:31 04/08/17 20:31 Lab Results 04/08/17 04/08/17 04/08/17 Range/Units 20:31 20:31 20:31 WBC 6.7 (4.3-11.1) K/mcL RBC 5.61 H (3.82-4.97) M/mcL Hgb 16.9 H (11.5-15.4) g/dL Hct 50.9 H (35.3-44.9) % MCV 90.7 (83.0-100.0) fL MCH 30.1 (28.0-33.3) pg MCHC 33.2 (31.6-35.5) g/dL RDW 13.0 (11.5-14.5) % Plt Count 301 (140-400) K/mcL MPV 9.5 (9.4-12.4) fL Immature Gran % 0.3 (0-4) % Seg Neutrophils % 59.4 % Lymphocytes % 25.4 % Monocytes % 14.8 % Eosinophils % 0.0 % Basophils % 0.1 % Neutrophils # 4.0 (1.6-8.9) K/mcL Lymphocytes # 1.7 (0.6-4.6) K/mcL Monocytes # 1.0 (0.0-1.3) K/mcL Eosinophils # 0.0 (0.0-0.6) K/mcL Basophils # 0.0 (0.0-0.2) K/mcL Nucleated RBCs/100 WBC 0.3 H (0) /100 WBC Sodium 134 L (136-145) mEq/L Potassium 4.2 (3.5-5.1) mEq/L Chloride 99 (98-107) mEq/L Carbon Dioxide 27 (23-29) mEq/L BUN 25 H (8-23) mg/dL Creatinine 1.18 (0.60-1.20) mg/dL Est GFR ( Amer) 55 L (> 60) Est GFR (Non-Af Amer) 45 L (> 60) BUN/Creatinine Ratio 21 (6-26) Glucose 103 (70-105) mg/dL Calculated Osmolality 283 (280-300) Lactic Acid 1.2 (0.5-2.2) mmol/L Calcium 9.1 (8.6-10.3) mg/dL Troponin I (< 0.04) ng/mL B-Natriuretic Peptide (Less than 100) pg/mL 04/08/17 04/08/17 Range/Units 20:31 20:31 WBC (4.3-11.1) K/mcL RBC (3.82-4.97) M/mcL Hgb (11.5-15.4) g/dL Hct (35.3-44.9) % MCV (83.0-100.0) fL MCH (28.0-33.3) pg MCHC (31.6-35.5) g/dL RDW (11.5-14.5) % Plt Count (140-400) K/mcL MPV (9.4-12.4) fL Immature Gran % (0-4) % Seg Neutrophils % % Lymphocytes % % Monocytes % % Eosinophils % % Basophils % % Neutrophils # (1.6-8.9) K/mcL Lymphocytes # (0.6-4.6) K/mcL Monocytes # (0.0-1.3) K/mcL Eosinophils # (0.0-0.6) K/mcL Basophils # (0.0-0.2) K/mcL Nucleated RBCs/100 WBC (0) /100 WBC Sodium (136-145) mEq/L Potassium (3.5-5.1) mEq/L Chloride (98-107) mEq/L Carbon Dioxide (23-29) mEq/L BUN (8-23) mg/dL Creatinine (0.60-1.20) mg/dL Est GFR ( Amer) (> 60) Est GFR (Non-Af Amer) (> 60) BUN/Creatinine Ratio (6-26) Glucose (70-105) mg/dL Calculated Osmolality (280-300) Lactic Acid (0.5-2.2) mmol/L Calcium (8.6-10.3) mg/dL Troponin I < 0.03 (< 0.04) ng/mL B-Natriuretic Peptide 12 (Less than 100) pg/mL Attestation Statement - Attestation Attestation: I examined this patient and my medical decision-making was reviewed with the Resident Physician. I agree with the documented findings, disposition and treatment plan as described except to the extent set forth below. [id number] time provided Patient arrives by EMS complaining of dyspnea, cough, wheezing. She has a known history of COPD. She does not appear in any acute distress on exam but does appear slightly disheveled. Patient seen and evaluated in conjunction with resident physician Dr. Oliva
--- NOTE | 2017-04-08 20:27 | Emergency Department Note ---
Disposition Clinical Impression: Acute exacerbation of chronic obstructive airways disease, Cough Disposition: Admitted As Inpatient Condition: Good Forms: ED Satisfaction Letter Time of Disposition: 21:52 General Adult HPI - General Chief complaint: ED Shortness of Breath/Dyspnea Stated complaint: difficulty in breathing Time Seen by Provider: 04/08/17 20:22 Source: patient, EMS Mode of arrival: EMS Limitations: no limitations Nursing Notes Reviewed: Yes Vital Signs Reviewed: Yes - History of Present Illness HPI Narrative: Patient is a 8 and erythema since the emergency department for shortness of breath and difficulty in breathing. She states that this is been progressively worsening since . States it has been worse over the past 2 days. She states that she has been having a cough with phlegm production. EMS reported that she was 90% on room air and 94% on 2 L. Patient states that she is also having associated fever and chills with a dry nose. Patient denies any recent sick contacts. Patient denies any home oxygen. She also states that she has had mild chest pain on the left side that has been stabbing. - Related Data Home Medications Medication Instructions Recorded Confirmed Albuterol Sulfate [Ventolin Hfa] 2 puff IH Q4H 01/05/17 01/05/17 Carisoprodol [Soma] 350 mg PO BID PRN 01/05/17 01/05/17 Cholecalciferol (D-3) [Vitamin D] 1,000 unit PO DAILY 01/05/17 01/05/17 Cyanocobalamin (Vitamin B-12) 1,000 mcg PO DAILY 01/05/17 01/05/17 [Vitamin B-12] Lisinopril/Hydrochlorothiazide 1 each PO DAILY 01/05/17 01/05/17 [Zestoretic 20-12.5 mg Tablet] Multivit with Calcium,Iron,Min 1 each PO DAILY 01/05/17 01/05/17 [One Daily Women's] [place]-3/Dha/Epa/Fish Oil [Fish Oil 1 each PO DAILY 01/05/17 01/05/17 1,000 mg Softgel] OxyCODONE/APAP 5/325 [Percocet 1 each PO Q8H PRN 01/05/17 01/05/17 5/325 MG] Potassium Citrate [Urocit-K] 15 meq PO BID 01/05/17 01/05/17 diazePAM [Valium] 10 mg PO BID PRN 01/05/17 01/05/17 Previous Rx's Medication Instructions Recorded Aspirin Enteric Coated [Aspirin EC] 81 mg PO DAILY #30 tablet. 01/06/17 Atorvastatin Calcium [Lipitor] 20 mg PO HS #30 tablet 01/06/17 Allergies Allergy/AdvReac Type Severity Reaction Status Date / Time acetaminophen AdvReac Mild Nausea Verified 01/05/17 21:44 [From Darvocet-N] gabapentin [From Neurontin] AdvReac Mild See Verified 01/05/17 21:43 Comments propoxyphene AdvReac Mild Nausea Verified 04/08/17 20:55 All systems ED: reviewed and negative except as stated. Constitutional: Reports: fever Cardiovascular: Reports: chest pain Respiratory: Reports: cough, dyspnea, sputum production Past Medical History - Past Medical History Medical history: Reports: COPD, fibromyalgia, other Surgical history: Reports: hysterectomy Psychiatric history: Reports: anxiety, depression - Social History Smoking Status: Current every day smoker Smokeless Tobacco Status: No Alcohol use: Reports: none Drug use: Reports: marijuana Physical Exam - General Limitations: no limitations General appearance: alert, in no apparent distress - Head Head exam: atraumatic, normocephalic - Eye Eye exam: Present: normal appearance, EOMI - Neck Neck exam: Present: normal inspection, full ROM, trachea midline - Respiratory Respiratory exam: Present: other (Decreased breath sounds bilaterally) - Cardiovascular Cardiovascular exam: Present: normal rhythm, tachycardia, normal heart sounds, + S1, +S2 - Neurological Exam Neurological exam: Present: alert, oriented X3 - Psychiatric Psychiatric exam: Present: normal affect, normal mood - Skin Skin exam: Present: warm, dry, intact Course Vital Signs Temperature 100 F H 04/08/17 20:22 Pulse Rate 110 04/08/17 20:22 Respiratory Rate 24 04/08/17 20:22 Blood Pressure 147/90 04/08/17 20:22 O2 Sat by Pulse Oximetry 94 04/08/17 20:22 Temperature 100 F H 04/08/17 20:22 Pulse Rate 112 04/08/17 21:14 Respiratory Rate 24 04/08/17 21:14 Blood Pressure 125/88 04/08/17 21:14 O2 Sat by Pulse Oximetry 94 04/08/17 21:14 Oxygen Delivery Oxygen Delivery Nasal Cannula Medical Decision Making - MDM Narrative Medical decision making narrative: Due the patient having shortness of breath and mild chest pain will order a CBC , BMP, BNP, troponin and chest x-ray and EKG. We will also obtain a lactic acid and blood cultures. Patient's EKG showed sinus tachycardia. Troponin was negative. The patient did not have an elevated white count. BNP was within normal limits. Patient had a GFR of 45 which appears to be about at her baseline. The patient states she is still feeling short of breath and does not feel that she is able to go home. The patient will need to be admitted to the hospital for further evaluation and management for acute exacerbation of COPD. I called and spoke hospice and they have accepted the patient to their service. The patient will be admitted to the hospital at this time. - Lab Data Lab results reviewed: Yes I reviewed the patient's lab results. Result diagrams: 04/08/17 20:31 04/08/17 20:31 Lab Results 04/08/17 04/08/17 04/08/17 Range/Units 20:31 20:31 20:31 WBC 6.7 (4.3-11.1) K/mcL RBC 5.61 H (3.82-4.97) M/mcL Hgb 16.9 H (11.5-15.4) g/dL Hct 50.9 H (35.3-44.9) % MCV 90.7 (83.0-100.0) fL MCH 30.1 (28.0-33.3) pg MCHC 33.2 (31.6-35.5) g/dL RDW 13.0 (11.5-14.5) % Plt Count 301 (140-400) K/mcL MPV 9.5 (9.4-12.4) fL Immature Gran % 0.3 (0-4) % Seg Neutrophils % 59.4 % Lymphocytes % 25.4 % Monocytes % 14.8 % Eosinophils % 0.0 % Basophils % 0.1 % Neutrophils # 4.0 (1.6-8.9) K/mcL Lymphocytes # 1.7 (0.6-4.6) K/mcL Monocytes # 1.0 (0.0-1.3) K/mcL Eosinophils # 0.0 (0.0-0.6) K/mcL Basophils # 0.0 (0.0-0.2) K/mcL Nucleated RBCs/100 WBC 0.3 H (0) /100 WBC Sodium 134 L (136-145) mEq/L Potassium 4.2 (3.5-5.1) mEq/L Chloride 99 (98-107) mEq/L Carbon Dioxide 27 (23-29) mEq/L BUN 25 H (8-23) mg/dL Creatinine 1.18 (0.60-1.20) mg/dL Est GFR ( Amer) 55 L (> 60) Est GFR (Non-Af Amer) 45 L (> 60) BUN/Creatinine Ratio 21 (6-26) Glucose 103 (70-105) mg/dL Calculated Osmolality 283 (280-300) Lactic Acid 1.2 (0.5-2.2) mmol/L Calcium 9.1 (8.6-10.3) mg/dL Troponin I (< 0.04) ng/mL B-Natriuretic Peptide (Less than 100) pg/mL 04/08/17 04/08/17 Range/Units 20:31 20:31 WBC (4.3-11.1) K/mcL RBC (3.82-4.97) M/mcL Hgb (11.5-15.4) g/dL Hct (35.3-44.9) % MCV (83.0-100.0) fL MCH (28.0-33.3) pg MCHC (31.6-35.5) g/dL RDW (11.5-14.5) % Plt Count (140-400) K/mcL MPV (9.4-12.4) fL Immature Gran % (0-4) % Seg Neutrophils % % Lymphocytes % % Monocytes % % Eosinophils % % Basophils % % Neutrophils # (1.6-8.9) K/mcL Lymphocytes # (0.6-4.6) K/mcL Monocytes # (0.0-1.3) K/mcL Eosinophils # (0.0-0.6) K/mcL Basophils # (0.0-0.2) K/mcL Nucleated RBCs/100 WBC (0) /100 WBC Sodium (136-145) mEq/L Potassium (3.5-5.1) mEq/L Chloride (98-107) mEq/L Carbon Dioxide (23-29) mEq/L BUN (8-23) mg/dL Creatinine (0.60-1.20) mg/dL Est GFR ( Amer) (> 60) Est GFR (Non-Af Amer) (> 60) BUN/Creatinine Ratio (6-26) Glucose (70-105) mg/dL Calculated Osmolality (280-300) Lactic Acid (0.5-2.2) mmol/L Calcium (8.6-10.3) mg/dL Troponin I < 0.03 (< 0.04) ng/mL B-Natriuretic Peptide 12 (Less than 100) pg/mL - Radiology Data Radiology results reviewed: Yes I reviewed the patient's radiology results. Chest X-Ray 04/08/17 20:24 IMPRESSION: No evidence of acute cardiopulmonary disease. D/ / Toni Cuellar MD / Toni Cuellar MD Interpreting Provider: Toni Cuellar MD - EKG Data EKG #1 EKG attestation: Yes I reviewed and interpreted this EKG. EKG results narrative: EKG shows a sinus tachycardia at a rate of 106 bpm, NC interval of 123, curette used to 76, QTc of 368 with a normal axis. There is no STEMI noted on EKG. This was compared to previous EKG on 01/05/17 at a rate of 65 bpm.
[2017-04-08] MEDS ORDERED: methylPREDNISolone 125 MG/2 ML VIAL IVP ONE (20:34)
[2017-04-08] MEDS ORDERED: Ipratropium/Albuterol Neb 3 ML IH ONE (20:34)
[2017-04-08 20:41] LABS: Basophils % 0.1 %; Hematocrit 50.9 % (35.3-44.9); Hemoglobin 16.9 g/dL (11.5-15.4); Immature Granulocytes % 0.3 % (0-4); Lymphocytes # 1.7 K/mcL (0.6-4.6); Lymphocytes % 25.4 %; Mean Corpuscular HGB Conc 33.2 g/dL (31.6-35.5); Mean Corpuscular Hemoglobin 30.1 pg (28.0-33.3); Mean Corpuscular Volume 90.7 fL (83.0-100.0); Mean Platelet Volume 9.5 fL (9.4-12.4); Monocytes % 14.8 %; Nucleated Red Blood Cells 0.3 /100 WBC (0); Platelet Count 301 K/mcL (140-400); Red Blood Count 5.61 M/mcL (3.82-4.97); Segmented Neutrophils % 59.4 %
[2017-04-08 21:00] LABS: Calcium 9.1 mg/dL (8.6-10.3); Potassium 4.2 mEq/L (3.5-5.1)
[2017-04-08] MEDS ORDERED: Naloxone 0.4 MG/ML INJ IVP PRN (22:08)
[2017-04-08] MEDS ORDERED: Ipratropium/Albuterol Neb 3 ML IH PRN (22:08)
[2017-04-08] MEDS ORDERED: Carisoprodol 350 MG TABLET PO PRN (22:13)
[2017-04-08] MEDS ORDERED: diazePAM 10 MG TABLET PO PRN (22:13)
--- NOTE | 2017-04-08 22:14 | Internal Med History&Physical ---
Date of Encounter: 04/08/17 Time of Encounter: 22:18 Assessment and Plan (1) Acute exacerbation of chronic obstructive airways disease Current visit: Yes Status: Acute duonebs, IV steroids, IV azithro pulse ox send RVP discussed stopping smoking. Nicotine patch therapy antitussive (2) CAD (coronary artery disease) Current visit: No Status: Chronic continue med Qualifiers: Coronary Disease-Associated Artery/Lesion type: [place] artery [place] vs. transplanted heart: [place] heart Qualified Code(s): I25.10 - Atherosclerotic heart disease of [place] coronary artery without angina pectoris (3) Fibromyalgia Current visit: No Status: Chronic continue home med (4) HLD (hyperlipidemia) Current visit: No Status: Chronic Qualifiers: Hyperlipidemia type: mixed hyperlipidemia Qualified Code(s): E78.2 - Mixed hyperlipidemia (5) Tobacco abuse Current visit: No Status: Chronic patch therapy discussed cessation (6) TIA (transient ischemic attack) Current visit: No Status: Acute not active Qualifiers: Transient cerebral ischemia type: other Qualified Code(s): G45.8 - Other transient cerebral ischemic attacks and related syndromes (7) HTN (hypertension) Current visit: Yes Status: Acute monitor BP on anti-HTN Qualifiers: Hypertension type: essential hypertension Qualified Code(s): I10 - Essential (primary) hypertension Internal Medicine - H&P: HPI Chief complaint: cough, congestion, SOB History of present illness: Ms. Whipple is a 71 year old female who presents with cough, congestion, SOB. Found acute on subacute COPD flare. She lives at home and visits with Dr Miki Morel of pulm at [facility]. She has been slowly declining since dec 2016 but experienced worsening respiratory symptoms since sunday where she reported increased cough, productive of whitish sputum. She feels warm. She reports smoking 1 PPD and lives in a rental apt by herself - she reports that the poor maintenance in her apt is not helping her breathing. Her dtr visited her and notice the respiratory decline which prompted visit to the ED. She feels she is more weak than before - generalized weakness due to her breathing issues. At baseline, she is on RA. EKG reviewed by self with rate 106, NSR XR/XR chest 1V portable IMPRESSION: No evidence of acute cardiopulmonary disease. Past Med Surg Social Fam HX - Past Medical History Medical history: COPD, fibromyalgia, other Psychiatric history: anxiety, depression - Past Surgical History Surgical History: hysterectomy - Social History Smoking Status: Current every day smoker Smokeless Tobacco Status: No Alcohol use: none Drug use: marijuana - Family History Sister Hx Family Endocrine Disorder: Yes (dm) Internal Medicine - H&P: Meds Albuterol Sulfate [Ventolin Hfa] 2 puff IH Q4H 01/05/17 [History] Carisoprodol [Soma] 350 mg PO BID PRN 01/05/17 [History] Cholecalciferol (D-3) [Vitamin D] 1,000 unit PO DAILY 01/05/17 [History] Cyanocobalamin (Vitamin B-12) [Vitamin B-12] 1,000 mcg PO DAILY 01/05/17 [ History] Lisinopril/Hydrochlorothiazide [Zestoretic 20-12.5 mg Tablet] 1 each PO DAILY [History] Multivit with Calcium,Iron,Min [One Daily Women's] 1 each PO DAILY 01/05/17 [ History] [place]-3/Dha/Epa/Fish Oil [Fish Oil 1,000 mg Softgel] 1 each PO DAILY 01/05/17 [ History] OxyCODONE/APAP 5/325 [Percocet 5/325 MG] 1 each PO Q8H PRN 01/05/17 [History] Potassium Citrate [Urocit-K] 15 meq PO BID 01/05/17 [History] diazePAM [Valium] 10 mg PO BID PRN 01/05/17 [History] Aspirin Enteric Coated [Aspirin EC] 81 mg PO DAILY #30 tablet. 01/06/17 [Rx] Atorvastatin Calcium [Lipitor] 20 mg PO HS #30 tablet 01/06/17 [Rx] 3 Allergy/AdvReac Type Severity Reaction Status Date / Time acetaminophen AdvReac Mild Nausea Verified 01/05/17 21:44 [From Darvocet-N] gabapentin [From Neurontin] AdvReac Mild See Verified 01/05/17 21:43 Comments propoxyphene AdvReac Mild Nausea Verified 04/08/17 20:55 All Systems PM: A 10-system review of systems was performed and is negative for pertinent findings except as documented above in the HPI. Review of systems: ROS 14 point review of systems reviewed as best as possible given presentation. Pertinent positive or negative as per HPI or otherwise reviewed as negative - Constitutional Vitals: Temp Pulse Resp BP Pulse Ox 100 F H 112 24 125/88 94 04/08/17 20:22 04/08/17 21:14 04/08/17 21:14 04/08/17 21:14 04/08/17 21:14 Exam: General - AAO x 3 Psych - Appropriate affect/speech. No agitation Eyes - DEBBI. Eye lids intact. No scleral icterus Neuro - No gross peripheral or central neuro deficits on inspection Heart - Sinus. RRR. S1 and S2 present. No added HS/murmurs appreciated. No elevated JVD appreciated. Lung - Decreased air entry b/l, No crackles. Scant wheezes appreciated GI - Soft, non-tender. No hepatosplenomegaly/ascites. BS+ - No CVA/suprapubic tenderness or palpable bladder distension Skin - Intact. No rash/petechiae/ecchymosis. Warm extremities Internal Med - H&P Results - Labs CBC & Chem 7: 04/08/17 20:31 04/08/17 20:31
[2017-04-08] MEDS: Azithromycin 500 MG in D5% in Water 250 ML IVPB SCH (23:22)
[2017-04-09] MEDS: MethylPREDNISolone 40 MG/ML VIAL IVP SCH ×4 (02:36→23:18)
[2017-04-09] MEDS: Ipratropium/Albuterol Neb 3 ML IH SCH ×3 (04:06→16:16)
[2017-04-09] MEDS: *HR* Enoxaparin 30 MG/0.3 ML SYRINGE SQ SCH (05:39)
[2017-04-09] MEDS: GuaiFENesin/Dextromethorphan TABLET PO SCH ×2 (08:03→23:18)
[2017-04-09] MEDS: Aspirin Enteric Coated 81 MG Tablet PO SCH (08:03)
[2017-04-09] MEDS: Cholecalciferol (D-3) 1,000 UNIT TABLET PO SCH (08:03)
[2017-04-09] MEDS: Nicotine 21 MG PATCH.TD24 TD SCH (08:04)
[2017-04-09] MEDS ORDERED: Lisinopril-HCTZ 20-12.5mg TABLET PO SCH (09:00)
[2017-04-09 09:47] LABS: Calcium 8.7 mg/dL (8.6-10.3); Potassium 4.4 mEq/L (3.5-5.1)
--- NOTE | 2017-04-09 12:27 | Internal Med Progress Note ---
Date of Encounter: 04/09/17 Time of Encounter: 09:30 - Assessment and plan (1) Acute exacerbation of chronic obstructive airways disease Current Visit: Yes Status: Acute Assessment and plan: Still has diffuse wheezing cont IV steroids Solumedrol Q8hr Duoneb + O2 try to wean her off the O2 as she tolerates cont empirical abx Azithromycin Counseled to quit smoking on nicotine patch (2) Acute respiratory failure with hypoxia Current Visit: Yes Status: Acute Assessment and plan: May need home O2 eval before d/c home (3) Bronchitis Current Visit: Yes Status: Acute Assessment and plan: Mostly bacterial cont empirical abx Azithromycin (4) CKD (chronic kidney disease) stage 3, GFR 30-59 ml/min Current Visit: Yes Status: Acute Assessment and plan: Cr slightly elevated than baseline d/c HCTZ cont Lisinopril Gentle IV hydration x 1 bag (5) HTN (hypertension) Current Visit: No Status: Chronic Assessment and plan: On lisinopril Qualifiers: Hypertension type: essential hypertension Qualified Code(s): I10 - Essential (primary) hypertension (6) CAD (coronary artery disease) Current Visit: No Status: Chronic Assessment and plan: resumed home meds Qualifiers: Coronary Disease-Associated Artery/Lesion type: [place] artery [place] vs. transplanted heart: [place] heart Qualified Code(s): I25.10 - Atherosclerotic heart disease of [place] coronary artery without angina pectoris (7) Fibromyalgia Current Visit: No Status: Chronic Assessment and plan: resumed home meds (8) HLD (hyperlipidemia) Current Visit: No Status: Chronic Qualifiers: Hyperlipidemia type: mixed hyperlipidemia Qualified Code(s): E78.2 - Mixed hyperlipidemia (9) Tobacco abuse Current Visit: No Status: Chronic - Subjective Interval history: Ms. Whipple is a 71 year old female with known PMH of HTN, anxiety, fibromyalgia, HLD , chronic tobacco dependence, COPD not on home O2 dependent who presented to ER with cough, congestion, SOB. She reports smoking 1 PPD and lives. Pt stated she still has moderate SOB / [place]. Currently on 2 lit O2. Denied any CP. Still has cough with yellowish expectoration. - Constitutional Vitals: Temp Pulse Resp BP Pulse Ox 98.1 F 85 18 101/66 93 04/09/17 11:42 04/09/17 11:42 01/29/18 11:42 04/09/17 11:42 04/09/17 11:42 General appearance: Present: A&O X 3, no acute distress, answers questions appropriately - Head Head exam: Present: atraumatic, normal inspection - Neck Neck exam general surgery: Present: supple - Respiratory Respiratory exam: Present: decreased breath sounds, wheezes (moderate). Absent : rales, respiratory distress, rhonchi - Cardiovascular Cardiovascular exam: Present: RRR, +S1, +S2. Absent: tachycardia - GI/Abdominal GI/Abdominal exam: Present: normal bowel sounds, soft. Absent: rebound, rigid, tenderness - Extremities Exam Extremities exam: Absent: pedal edema, tenderness - Back Exam Back exam: Absent: CVA tenderness (L), CVA tenderness (R) - Neurological Exam Neurological exam: Present: alert, oriented X3 - Psychiatric Psychiatric exam: Present: normal affect, normal mood Internal Medicine: Result - Labs CBC & Chem 7: 04/08/17 20:31 04/09/17 04:26 Labs: BMP 04/09/17 04:26 Sodium 130 L Potassium 4.4 Chloride 98 Carbon Dioxide 25 BUN 30 H Creatinine 1.32 H Glucose 174 H Calcium 8.7 Consult Discharge Plan - Plan Referrals: Bryan Mai MD [Primary Care Provider] -
[2017-04-09] MEDS ORDERED: MethylPREDNISolone 40 MG/ML VIAL IVP SCH (12:30)
[2017-04-09] MEDS: diazePAM 10 MG TABLET PO PRN (14:30)
[2017-04-09] MEDS: *HR* OxyCODONE/APAP 5/325 TABLET PO PRN (17:40)
[2017-04-09] MEDS: Azithromycin 500 MG in D5% in Water 250 ML IVPB SCH (23:18)
[2017-04-09] MEDS: Melatonin 3 MG TABLET PO SCH (23:18)
[2017-04-10] MEDS: Ipratropium/Albuterol Neb 3 ML IH SCH ×5 (00:10→22:55)
[2017-04-10 05:02] LABS: Basophils % 0.2 %; Hematocrit 41.8 % (35.3-44.9); Immature Granulocytes % 0.7 % (0-4); Lymphocytes # 1.2 K/mcL (0.6-4.6); Lymphocytes % 28.3 %; Mean Corpuscular Hemoglobin 29.7 pg (28.0-33.3); Mean Corpuscular Volume 90.1 fL (83.0-100.0); Mean Platelet Volume 9.5 fL (9.4-12.4); Monocytes # 0.5 K/mcL (0.0-1.3); Monocytes % 10.5 %; Neutrophils # 2.6 K/mcL (1.6-8.9); Platelet Count 251 K/mcL (140-400); Red Blood Count 4.64 M/mcL (3.82-4.97); Red Cell Distribution Width 13.2 % (11.5-14.5); Segmented Neutrophils % 60.3 %
[2017-04-10 05:03] LABS: Hemoglobin 13.8 g/dL (11.5-15.4)
[2017-04-10 05:15] LABS: Calcium 8.6 mg/dL (8.6-10.3); Magnesium 1.6 mg/dL (1.6-2.6); Potassium 3.9 mEq/L (3.5-5.1)
[2017-04-10] MEDS: *HR* Enoxaparin 30 MG/0.3 ML SYRINGE SQ SCH (06:36)
[2017-04-10] MEDS: Aspirin Enteric Coated 81 MG Tablet PO SCH (07:47)
[2017-04-10] MEDS: Cholecalciferol (D-3) 1,000 UNIT TABLET PO SCH (07:47)
[2017-04-10] MEDS: GuaiFENesin/Dextromethorphan TABLET PO SCH ×2 (07:49→20:48)
[2017-04-10] MEDS: diazePAM 10 MG TABLET PO PRN ×2 (07:49→17:34)
[2017-04-10] MEDS: Nicotine 21 MG PATCH.TD24 TD SCH (07:50)
[2017-04-10] MEDS: MethylPREDNISolone 40 MG/ML VIAL IVP SCH (07:52)
--- NOTE | 2017-04-10 11:04 | Internal Med Progress Note ---
<Ry Hernández - Last Filed: 04/10/17 13:23> Date of Encounter: 04/10/17 Time of Encounter: 08:00 - Assessment and plan (1) Hypotensive episode Current Visit: Yes Status: Acute Assessment and plan: Patient had episode of hypotension this AM 84/65 and continues to be hypotensive. She complains of dizziness and weakness. Continue to hold lisinopril/HCTz. Start 1 bolus 0.9% NaCl. We will keep patient here for today and monitor blood pressure. Plan for discharge tomorrow if symptoms improve. (2) Acute kidney injury Current Visit: Yes Status: Acute Assessment and plan: Stage 1 KONRAD. Patient's BUN and Creatinine worsening today. Creatinine increased > 0.3 in the last 48 hours. KONRAD possibly due to dehydration. Patient denies hematuria, dysuria, or symptoms consistent with UTI. Follow-up with UA for possible infection. Start 1 bolus 0.9 NaCl. Continue with AM labs. (3) Acute exacerbation of chronic obstructive airways disease Current Visit: Yes Status: Acute Assessment and plan: Improved. Patient reports improvement of cough, shortness of breath. Home health following. Plan to discharge tomorrow with home health and oxygen. Continue with duoneb, zithromax day #3. Wean off O2 as tolerated with SPO2 goal >92%. Switch solumedrol to prednisone 40mg daily for steroid tapering. RIP pending to rule out possible viral infection. Patient is counseled on smoking cessation. (4) CAD (coronary artery disease) Current Visit: No Status: Chronic Assessment and plan: Continue home medications Qualifiers: Coronary Disease-Associated Artery/Lesion type: [place] artery [place] vs. transplanted heart: [place] heart Qualified Code(s): I25.10 - Atherosclerotic heart disease of [place] coronary artery without angina pectoris (5) Fibromyalgia Current Visit: No Status: Chronic Assessment and plan: Continue home medications (6) DVT prophylaxis Current Visit: No Status: Acute Assessment and plan: Continue Lovenox 30 mg SQ daily for DVT prophylaxis (7) HLD (hyperlipidemia) Current Visit: No Status: Chronic Assessment and plan: Continuing Lipitor 20 mg by mouth daily at bedtime Qualifiers: Hyperlipidemia type: mixed hyperlipidemia Qualified Code(s): E78.2 - Mixed hyperlipidemia (8) CKD (chronic kidney disease) stage 3, GFR 30-59 ml/min Current Visit: Yes Status: Acute Assessment and plan: Serum creatinine continues to be elevated likely secondary to dehydration. Continue to hold HCTZ and lisinopril. 1 bolus 0.9% NaCl. Monitor with a.m. labs. - Time Spent With Patient 25 - 35 minutes - Subjective Interval history: Ms. Whipple is a 71 year old female who presented with cough, congestion and SOB and admitted for COPD exacerbation. Today, she reports improvement of SOB and cough. Denies CP, diaphoresis. Admits to weakness and dizziness. Denies abdominal pain, diarrhea, constipation, hematuria, dysuria. - Constitutional Vitals: Temp Pulse Resp BP Pulse Ox 97.6 F 78 18 93/57 96 04/10/17 07:54 04/10/17 07:54 04/10/17 07:54 04/10/17 07:54 04/10/17 08:13 General appearance: Present: A&O X 3, no acute distress, answers questions appropriately - Head Head exam: Present: atraumatic, normocephalic - Eye Eye exam: Present: normal appearance - ENT ENT exam: Present: mucous membranes dry - Neck Neck exam general surgery: Present: full ROM, supple, trachea midline - Respiratory Respiratory exam: Present: CTAB. Absent: rales, respiratory distress, rhonchi, wheezes - Cardiovascular Cardiovascular exam: Present: distant heart sounds, +S1, +S2. Absent: systolic murmur - GI/Abdominal GI/Abdominal exam: Present: normal bowel sounds, no peritoneal signs. Absent: guarding, rebound, tenderness - Extremities Exam Extremities exam: Present: full ROM, radial pulses palpable and symmetrical. Absent: normal capillary refill, pedal edema, tenderness - Neurological Exam Neurological exam: Present: alert, CN II-XII intact, oriented X3 - Psychiatric Psychiatric exam: Present: anxious Internal Medicine: Result - Labs CBC & Chem 7: 04/10/17 04:18 04/10/17 04:18 Labs: Short CBC 04/10/17 Range/Units 04:18 WBC 4.3 (4.3-11.1) K/mcL Hgb 13.8 D (11.5-15.4) g/dL Hct 41.8 (35.3-44.9) % Plt Count 251 (140-400) K/mcL Neutrophils # 2.6 (1.6-8.9) K/mcL BMP 04/10/17 04:18 Sodium 132 L Potassium 3.9 Chloride 99 Carbon Dioxide 25 BUN 48 H Creatinine 1.41 H Glucose 175 H Calcium 8.6 Consult Discharge Plan - Plan Referrals: Bryan Mai MD [Primary Care Provider] - <SarahnessaToribio bahena H - Last Filed: 04/10/17 13:40> Date of Encounter: 04/10/17 - Constitutional Vitals: Temp Pulse Resp BP Pulse Ox 97.5 F L 97 18 98/64 95 04/10/17 11:57 04/10/17 11:57 04/10/17 11:57 04/10/17 11:57 04/10/17 11:57 Internal Medicine: Result - Labs CBC & Chem 7: 04/10/17 04:18 04/10/17 04:18 Labs: Short CBC 04/10/17 Range/Units 04:18 WBC 4.3 (4.3-11.1) K/mcL Hgb 13.8 D (11.5-15.4) g/dL Hct 41.8 (35.3-44.9) % Plt Count 251 (140-400) K/mcL Neutrophils # 2.6 (1.6-8.9) K/mcL [facility] 04/10/17 04:18 Sodium 132 L Potassium 3.9 Chloride 99 Carbon Dioxide 25 BUN 48 H Creatinine 1.41 H Glucose 175 H Calcium 8.6 - Attending Attestation Unexplained hypotension Check a UA Start IV fluids for acute renal failure Continue azithromycin and switch to prednisone I examined this patient and my medical decision-making was reviewed with the Resident Physician. I agree with the documented findings, disposition and treatment plan as described except to the extent set forth below.
[2017-04-10] MEDS: 0.9 % Sodium Chloride 1,000 ML IVC SCH (11:37)
[2017-04-10 17:01] LABS: Bilirubin,Urine Negative (Negative); Blood,Urine Negative (Negative); Clarity,Urine Clear (Clear); Color,Urine Yellow (Yellow); Glucose,Urine (UA) Normal (Normal); Ketones,Urine Negative (Negative); Leukocyte Esterase,Urine Negative (Negative); Nitrite,Urine Negative (Negative); Protein,Urine Negative (Neg-Trace); Specific Gravity,Urine 1.023 (1.010-1.025); Urobilinogen,Urine Normal (Normal)
[2017-04-10] MEDS: *HR* OxyCODONE/APAP 5/325 TABLET PO PRN (17:31)
--- NOTE | 2017-04-10 19:24 | Electrocardiograph Report ---
[place] [id number] Test Date: 2017-04-08 Pat Name: Jody Whipple Department: 104 Room: 3A21 Gender: F Regional Account Manager: BROOK : 1945 Requested By: Elliot Oliva Order Number: [id number] Reading MD: Janell Osuna Measurements Intervals [place] Rate: 106 P: 78 CT: 123 QRS: 49 QRSD: 76 T: 68 QT: 306 QTc: 368 Interpretive Statements SINUS TACHYCARDIA RIGHT ATRIAL ENLARGEMENT Electronically Signed On 04-10-2017 19:23:02 EST by Janell Osuna
[2017-04-10] MEDS: Melatonin 3 MG TABLET PO SCH (20:48)
[2017-04-10] MEDS: Azithromycin 500 MG in D5% in Water 250 ML IVPB SCH (23:10)
[2017-04-11] MEDS: diazePAM 10 MG TABLET PO PRN ×2 (00:26→13:54)
[2017-04-11] MEDS: 0.9 % Sodium Chloride 1,000 ML IVC SCH (02:50)
[2017-04-11] MEDS: Ipratropium/Albuterol Neb 3 ML IH SCH ×2 (04:51→11:19)
[2017-04-11 05:17] LABS: Basophils % 0.1 %; Hematocrit 40.3 % (35.3-44.9); Hemoglobin 13.4 g/dL (11.5-15.4); Immature Granulocytes % 0.4 % (0-4); Lymphocytes # 2.3 K/mcL (0.6-4.6); Lymphocytes % 34.1 %; Mean Corpuscular HGB Conc 33.3 g/dL (31.6-35.5); Mean Corpuscular Hemoglobin 30.2 pg (28.0-33.3); Mean Corpuscular Volume 90.8 fL (83.0-100.0); Mean Platelet Volume 9.8 fL (9.4-12.4); Monocytes # 0.6 K/mcL (0.0-1.3); Monocytes % 9.4 %; Platelet Count 246 K/mcL (140-400); Red Blood Count 4.44 M/mcL (3.82-4.97); Red Cell Distribution Width 13.2 % (11.5-14.5)
[2017-04-11 05:19] LABS: Calcium 8.3 mg/dL (8.6-10.3); Potassium 3.8 mEq/L (3.5-5.1)
[2017-04-11 05:23] LABS: Neutrophils # 3.8 K/mcL (1.6-8.9)
[2017-04-11 06:07] LABS: Platelet Estimate Normal (Normal)
[2017-04-11] MEDS: *HR* Enoxaparin 30 MG/0.3 ML SYRINGE SQ SCH (06:09)
[2017-04-11 07:09] VITALS: BP 102/54
--- NOTE | 2017-04-11 08:51 | Discharge Summary ---
Addendum entered and electronically signed by Pete Frazier DO 04/11/17 09:21: upon discharge, patient is in chronic stable stage for her COPD. Original Note: <Pete Frazier - Last Filed: 04/11/17 09:05> Date of Encounter: 04/11/17 Time of Encounter: 08:48 - Discharge Diagnosis (1) Acute exacerbation of chronic obstructive airways disease Priority: Primary Status: Acute (2) Acute kidney injury Priority: Secondary Status: Acute (3) CKD (chronic kidney disease) stage 3, GFR 30-59 ml/min Priority: Secondary Status: Acute (4) Hypotensive episode Priority: Secondary Status: Acute (5) CAD (coronary artery disease) Priority: Secondary Status: Chronic Qualifiers: Coronary Disease-Associated Artery/Lesion type: [place] artery [place] vs. transplanted heart: [place] heart Qualified Code(s): I25.10 - Atherosclerotic heart disease of [place] coronary artery without angina pectoris (6) Fibromyalgia Priority: Secondary Status: Chronic (7) HLD (hyperlipidemia) Priority: Secondary Status: Chronic Qualifiers: Hyperlipidemia type: mixed hyperlipidemia Qualified Code(s): E78.2 - Mixed hyperlipidemia - Discharge Medications Prescriptions: Ipratropium/Albuterol Neb [Duoneb] 3 ml IH [id number] PRN #3 inhsol PRN Reason: Shortness Of Breath/Wheezing predniSONE [PredniSONE] 40 mg PO DAILY #8 tablet Home Medications: Cyanocobalamin (Vitamin B-12) [Vitamin B-12] 1,000 mcg PO DAILY 01/05/17 [ History] Lisinopril/Hydrochlorothiazide [Zestoretic 20-12.5 mg Tablet] 1 tab PO DAILY [History] OxyCODONE/APAP 5/325 [Percocet 5/325 MG] 1 tab PO Q8H PRN 01/05/17 [History] Potassium Citrate [Urocit-K] 15 meq PO BID 01/05/17 [History] diazePAM [Valium] 10 mg PO BID PRN 01/05/17 [History] Aspirin Enteric Coated [Aspirin EC] 81 mg PO DAILY #30 tablet. 01/06/17 [Rx] predniSONE [PredniSONE] 1 each PO AD 04/10/17 [History] Ipratropium/Albuterol Neb [Duoneb] 3 ml IH [id number] PRN #3 inhsol 04/11/17 [Rx] predniSONE [PredniSONE] 40 mg PO DAILY #8 tablet 04/11/17 [Rx] Allergies/Adverse Reactions: 3 Allergy/AdvReac Type Severity Reaction Status Date / Time acetaminophen AdvReac Mild Nausea Verified 01/05/17 21:44 [From Darvocet-N] gabapentin [From Neurontin] AdvReac Mild See Verified 01/05/17 21:43 Comments propoxyphene AdvReac Mild Nausea Verified 04/08/17 20:55 Date of admission: 04/08/17 22:08 Primary care physician: Bryan Mai MD Consults: 04/09/17 16:33 Consult to Associate Veterinarian [CONS] Routine Reason for SW Consult: D/c planning Discharging clinician: Pete Frazier Anticipated date of discharge: 04/11/17 - Patient Status Disposition: Home Health Service Condition: Good Functional capacity at discharge: uses cane/walker Overall status at discharge: patient is progressing back to baseline - Discharge Instructions Follow Up With: Bryan Mai MD [Primary Care Provider] - 04/16/17 9:45 am - Diet and Activity Activity: increase activity as tolerated, wear oxygen at all times Diet: low fat, low cholesterol Hospital course: Ms. Whipple is a 71 year old female who presented with shortness of breath, cough, congestion. She does have a history of COPD and this was thought to be a COPD exacerbation as chest x-ray did not show any infiltrate. She was started on IV steroids and Zithromax. Patient breathing did improve during the course of her stay and her wheezing improved drastically. She was qualified for oxygen and will be going home on 2 L. She did have an episode of hypotension and her kidney function was slightly elevated above baseline. She is given some fluids and her blood pressure and kidney function responded appropriately. Patient will be going home on 4 more days of 40 mg of prednisone and also a prescription for her breathing treatments have been given. She will return back with home health. - Time Spent with Patient Total time spent providing and/or coordinating discharge services: Greater than 30 minutes - Constitutional Vitals: Temp Pulse Resp BP Pulse Ox 97.8 F 80 16 102/54 98 04/11/17 07:01 04/11/17 07:01 04/11/17 07:01 04/11/17 07:01 04/11/17 07:01 General appearance: Present: cooperative, pleasant, no acute distress, answers questions appropriately - Head Head exam: Present: atraumatic, normocephalic - Eye Eye exam: Present: PERRL, conjuntiva pink, sclera anicteric - Neck Neck exam general surgery: Present: supple, trachea midline. Absent: lymphadenopathy - Respiratory Respiratory exam: Present: wheezes (mild). Absent: accessory muscle use, rales , rhonchi - Cardiovascular Cardiovascular exam: Present: RRR, +S1, +S2. Absent: diastolic murmur, gallop, rubs, systolic murmur - GI/Abdominal GI/Abdominal exam: Present: normal bowel sounds, soft, no peritoneal signs. Absent: distended, tenderness - Extremities Exam Extremities exam: Present: warm, radial pulses palpable and symmetrical. Absent : calf tenderness, cyanotic, pedal edema - Neurological Exam Neurological exam: Present: alert, no focal deficits. Absent: facial droop, speech deficit - Skin Skin exam: Present: dry, intact <Toribio Galvez H - Last Filed: 04/11/17 10:14> Date of Encounter: 04/11/17 Date of admission: 04/08/17 22:08 Primary care physician: Bryan Mai MD Consults: 04/09/17 16:33 Consult to Associate Veterinarian [CONS] Routine Reason for SW Consult: D/c planning Hospital course: Ms. Whipple is a 71 year old female - Time Spent with Patient Total time spent providing and/or coordinating discharge services: - Constitutional Vitals: Temp Pulse Resp BP Pulse Ox 97.8 F 80 16 102/54 98 04/11/17 07:01 04/11/17 07:01 04/11/17 07:01 04/11/17 07:01 04/11/17 07:01 - Attending Attestation The patient completed 3 doses of azithromycin 500 mg IV Will be sent home on oxygen due to acute hypoxic respiratory failure secondary to acute COPD exacerbation from acute bacterial bronchitis Stable to be discharged Time spent on this discharge 40 minutes I examined this patient and my medical decision-making was reviewed with the Resident Physician. I agree with the documented findings, disposition and treatment plan as described except to the extent set forth below.
--- NOTE | 2017-04-11 08:56 | Physician Discharge Referral ---
<Pete Frazier - Last Filed: 04/11/17 08:55> Home Health/Hosp Referral Info Transfer to: Home Health Attending Provider: Dr. Garcia Provider in Charge Post Discharge: PCP - Diagnosis (1) Acute exacerbation of chronic obstructive airways disease Priority: Primary Status: Acute (2) Acute kidney injury Priority: Secondary Status: Acute (3) CKD (chronic kidney disease) stage 3, GFR 30-59 ml/min Priority: Secondary Status: Acute (4) Hypotensive episode Priority: Secondary Status: Acute (5) CAD (coronary artery disease) Priority: Secondary Status: Chronic (6) Fibromyalgia Priority: Secondary Status: Chronic (7) HLD (hyperlipidemia) Priority: Secondary Status: Chronic - Respiratory Orders Oxygen / L per min Smoking Cessation: Smoking cessation has been advised. For more information, call the [place] Tobacco Quit Line at 3-423-LOKB-NOW. - Diet/Nutrition Diet/Nutrition Orders: Cardiac - Activity Activity Orders: Walker - Services Needed Following services are medically necessary services: Nursing, Home Health Aide, Physical Therapy - Transfer Medications Prescriptions: Ipratropium/Albuterol Neb [Duoneb] 3 ml IH [id number] PRN #3 inhsol PRN Reason: Shortness Of Breath/Wheezing predniSONE [PredniSONE] 40 mg PO DAILY #8 tablet Home Medications: Cyanocobalamin (Vitamin B-12) [Vitamin B-12] 1,000 mcg PO DAILY 01/05/17 [ History] Lisinopril/Hydrochlorothiazide [Zestoretic 20-12.5 mg Tablet] 1 tab PO DAILY [History] OxyCODONE/APAP 5/325 [Percocet 5/325 MG] 1 tab PO Q8H PRN 01/05/17 [History] Potassium Citrate [Urocit-K] 15 meq PO BID 01/05/17 [History] diazePAM [Valium] 10 mg PO BID PRN 01/05/17 [History] Aspirin Enteric Coated [Aspirin EC] 81 mg PO DAILY #30 tablet. 01/06/17 [Rx] predniSONE [PredniSONE] 1 each PO AD 04/10/17 [History] Ipratropium/Albuterol Neb [Duoneb] 3 ml IH [id number] PRN #3 inhsol 04/11/17 [Rx] predniSONE [PredniSONE] 40 mg PO DAILY #8 tablet 04/11/17 [Rx] Allergies/Adverse Reactions: 3 Allergy/AdvReac Type Severity Reaction Status Date / Time acetaminophen AdvReac Mild Nausea Verified 01/05/17 21:44 [From Darvocet-N] gabapentin [From Neurontin] AdvReac Mild See Verified 01/05/17 21:43 Comments propoxyphene AdvReac Mild Nausea Verified 04/08/17 20:55 Certification: Further, I certify that my clinical findings support that this patient is homebound (i.e. absences from home require considerable and taxing effort and are for medical reasons or amish services or infrequently or short duration when for other reasons) because: Homebound Reason: Patient requires assistance of a person or device to safely leave home Attestation: My signature below is to certify that this patient is under my care and that I, or nurse practitioner, or a physician's administrative assistant coordinator working with me, has a face-to -face encounter with this patient. <Toribio Galvez - Last Filed: 04/11/17 10:14> - Respiratory Orders Smoking Cessation: Smoking cessation has been advised. For more information, call the [place] Tobacco Quit Line at 6-418-TVLV-NOW. Certification: Further, I certify that my clinical findings support that this patient is homebound (i.e. absences from home require considerable and taxing effort and are for medical reasons or amish services or infrequently or short duration when for other reasons) because: Attestation: My signature below is to certify that this patient is under my care and that I, or nurse practitioner, or a physician's administrative assistant coordinator working with me, has a face-to -face encounter with this patient.
[2017-04-11] MEDS: *HR* OxyCODONE/APAP 5/325 TABLET PO PRN (08:59)
[2017-04-11] MEDS: Aspirin Enteric Coated 81 MG Tablet PO SCH (08:59)
[2017-04-11] MEDS ORDERED: predniSONE 20 MG TABLET PO SCH (09:00)
[2017-04-11] MEDS: Nicotine 21 MG PATCH.TD24 TD SCH (09:00)
[2017-04-11] MEDS: Cholecalciferol (D-3) 1,000 UNIT TABLET PO SCH (09:00)
[2017-04-11] MEDS: GuaiFENesin/Dextromethorphan TABLET PO SCH (09:00)
== END 2017-04-11 16:15 | disposition home health service (06) | DRG 190 ==
LOC: EMEROO 20:21 → 3ANU 20:21
PROVIDERS: ADMIT Internal Medicine; ATTEND Internal Medicine

== ENCOUNTER 2017-09-08 03:23 | Inpatient (IN) ==
[2017-09-08] MEDS ORDERED: Ipratropium/Albuterol Neb 3 ML IH ONE (03:34)
[2017-09-08] MEDS ORDERED: methylPREDNISolone 125 MG/2 ML VIAL IVP ONE (03:34)
--- NOTE | 2017-09-08 03:57 | Emergency Department Note ---
Disposition Clinical Impression: COPD exacerbation, Elevated troponin Disposition: Admitted As Inpatient Condition: Fair Time of Disposition: 07:15 General Adult HPI - General Chief complaint: ED Shortness of Breath/Dyspnea Stated complaint: difficulty breathing Time Seen by Provider: 09/08/17 03:26 Source: patient, EMS Limitations: no limitations Nursing Notes Reviewed: Yes Vital Signs Reviewed: Yes - History of Present Illness HPI Narrative: Patient is a 69-year-old female past medical history of COPD requiring 2 L nasal cannula presents for evaluation of 4 days of shortness of breath. States that her symptoms of been gradual in onset. Patient states that she has been doing breathing treatments at home without relief. She also admits to a cough that states is productive. She denies any chest pain. Denies any history of blood clots. She does have a history of kidney cancer however does not have active cancer at this time. Pain Scale: 0 - Related Data Home Medications Medication Instructions Recorded Confirmed Albuterol Sulfate [Ventolin Hfa] 1 puff IH Q4-6H PRN 09/08/17 09/08/17 Ascorbate Calcium [Vitamin C] 500 mg PO DAILY 09/08/17 09/08/17 Aspirin [Lo-Dose Aspirin EC] 81 mg PO DAILY 09/08/17 09/08/17 Cholecalciferol (D-3) [Vitamin D] 1,000 unit PO DAILY 09/08/17 09/08/17 Cyanocobalamin (Vitamin B-12) 1,000 mcg PO DAILY 09/08/17 09/08/17 [Vitamin B-12] Duloxetine HCl [Cymbalta] 60 mg PO DAILY 09/08/17 09/08/17 Gabapentin [Neurontin] 100 mg PO TID 09/08/17 09/08/17 Ipratropium/Albuterol Neb [Duoneb] 3 ml IH Q4-6H PRN 09/08/17 09/08/17 Lisinopril/Hydrochlorothiazide 1 tab PO DAILY 09/08/17 09/08/17 [Zestoretic 20-12.5 mg Tablet] [place]-3/Dha/Epa/Fish Oil [Fish Oil 1 cap PO DAILY 09/08/17 09/08/17 1,000 mg Softgel] Umeclidinium [place] [Incruse 1 puff IH DAILY 06/30/18 06/30/18 Ellipta] diazePAM [Valium] 10 mg PO BID 09/08/17 Allergies Allergy/AdvReac Type Severity Reaction Status Date / Time gabapentin [From Neurontin] AdvReac Mild See Verified 09/08/17 08:20 Comments propoxyphene AdvReac Mild Nausea Verified 09/08/17 08:20 naproxen AdvReac See Verified 09/08/17 08:20 Comments All systems ED: reviewed and negative except as stated. Review of Systems: As Per HPI Constitutional: Denies: fever, chills Cardiovascular: Reports: dyspnea on exertion. Denies: chest pain, palpitations , edema, syncope, paroxysmal nocturnal dyspnea Respiratory: Reports: cough, dyspnea, wheezes, sputum production. Denies: hemoptysis Gastrointestinal: Denies: abdominal pain, nausea, vomiting Genitourinary: Denies: urgency, dysuria Musculoskeletal: Denies: back pain, neck pain Integumentary: Denies: rash Past Medical History - Past Medical History Attestation: Yes The following information was validated with the patient. Medical history: Reports: cancer, COPD, hypertension, other Surgical history: Reports: hysterectomy Psychiatric history: Reports: anxiety, depression - Social History Smoking Status: Light tobacco smoker Smokeless Tobacco Status: No Alcohol use: Reports: none Drug use: Reports: none Physical Exam CONSTITUTIONAL: ; A&O X 3, patient appears to be in moderate respiratory distress. States breath in between each sentences. Her vital signs show tachycardia,, tachypnea, blood pressure is stable pulse ox oxygen saturation is 90% on 4 L nasal cannula and she is afebrile. HEAD: Normocephalic; atraumatic EYES: PERRL, no scleral icterus NOSE: The nose is normal in appearance without rhinorrhea NECK: No JVD or distended neck veins RESP: Patient has increased work of breathing. Tachypnea. Diffuse wheezing throughout all lungs [place] on inspiration and expiration. CARD: Tachycardic. Regular rhythm, without murmurs, rub or gallop ABD: Non-distended; non-tender, soft, without rigidity, rebound or guarding,no pulsatile mass CHEST: No pain with palpation SKIN: Normal for age and race; warm and dry without diaphoresis ; no apparent lesions EXTREMITIES: Pulses are 2 plus and equal times 4 extremities, no peripheral edema or calf muscle pain - General Limitations: no limitations General appearance: alert Course Course Narrative: Plan at this time is to work the patient up for evaluation of COPD exacerbation we will also rule out cardiac ideology of the patient's cause as well as evaluate for possible need for further imaging for PE by performing a d-dimer. The patient will be placed on BiPAP due to her respiratory distress and she will receive 3 rounds of DuoNeb breathing treatments as well as IV steroids and antibiotics. Patient is meeting sepsis criteria at this time. We will give 500 ML fluids given the patient's blood pressure is stable. - Reevaluation(s) Reevaluation #1: Patient's CTA of the chest was negative for pulmonary embolism. Patient's aeration of her lungs have improved and her wheezing is decreased after her breathing treatments. She is continued on BiPAP at this time. Discussed with the patient plan to admit her to the hospital for COPD exacerbation. Patient agrees this plan. Time: 05:55 Vital Signs Temperature 98.1 F 09/08/17 03:24 Pulse Rate 122 09/08/17 03:24 Respiratory Rate 24 09/08/17 03:24 Blood Pressure 147/55 09/08/17 03:24 O2 Sat by Pulse Oximetry 90 09/08/17 03:24 Temperature 97.6 F 09/09/17 06:14 Pulse Rate 118 09/09/17 06:14 Respiratory Rate 18 09/09/17 06:14 Blood Pressure 106/71 09/09/17 06:14 O2 Sat by Pulse Oximetry 91 09/09/17 06:14 Oxygen Delivery Oxygen Delivery Bipap Medical Decision Making - Medical Records Medical records reviewed: Yes I reviewed the patient's medical records. - Lab Data Lab results reviewed: Yes I reviewed the patient's lab results. Result diagrams: 09/09/17 04:03 09/09/17 04:03 Lab Results 09/08/17 09/08/17 09/08/17 Range/Units 03:53 03:53 03:53 WBC 13.2 H (4.3-11.1) K/mcL RBC 4.89 (3.82-4.97) M/mcL Hgb 14.9 (11.5-15.4) g/dL Hct 44.6 (35.3-44.9) % MCV 91.2 (83.0-100.0) fL MCH 30.5 (28.0-33.3) pg MCHC 33.4 (31.6-35.5) g/dL RDW 13.7 (11.5-14.5) % Plt Count 251 (140-400) K/mcL MPV 9.3 L (9.4-12.4) fL Immature Gran % 0.5 (0-4) % Seg Neutrophils % 71.5 % Lymphocytes % 14.5 % Monocytes % 6.9 % Eosinophils % 6.3 % Basophils % 0.3 % Neutrophils # 9.5 H (1.6-8.9) K/mcL Lymphocytes # 1.9 (0.6-4.6) K/mcL Monocytes # 0.9 (0.0-1.3) K/mcL Eosinophils # 0.8 H (0.0-0.6) K/mcL Basophils # 0.0 (0.0-0.2) K/mcL D-Dimer 791 H (0-500) ng/mLFEU VBG pH (7.32-7.42) pH Units VBG pCO2 (41-51) mmHg VBG pO2 (25-50) mmHg VBG HCO3 (21-27) mEq/L Sodium 138 (136-145) mEq/L Potassium 4.0 (3.5-5.1) mEq/L Chloride 104 (98-107) mEq/L Carbon Dioxide 24 (23-29) mEq/L BUN 21 (8-23) mg/dL Creatinine 1.05 (0.60-1.20) mg/dL Est GFR ( Amer) > 60 (> 60) Est GFR (Non-Af Amer) 52 L (> 60) BUN/Creatinine Ratio 20 (6-26) Glucose 153 H (70-105) mg/dL Calculated Osmolality 292 (280-300) Lactic Acid (0.5-2.2) mmol/L Calcium 9.1 (8.6-10.3) mg/dL Troponin I 0.12 H* (< 0.04) ng/mL B-Natriuretic Peptide (Less than 100) pg/mL 09/08/17 09/08/17 09/08/17 Range/Units 03:53 03:53 04:37 WBC (4.3-11.1) K/mcL RBC (3.82-4.97) M/mcL Hgb (11.5-15.4) g/dL Hct (35.3-44.9) % MCV (83.0-100.0) fL MCH (28.0-33.3) pg MCHC (31.6-35.5) g/dL RDW (11.5-14.5) % Plt Count (140-400) K/mcL MPV (9.4-12.4) fL Immature Gran % (0-4) % Seg Neutrophils % % Lymphocytes % % Monocytes % % Eosinophils % % Basophils % % Neutrophils # (1.6-8.9) K/mcL Lymphocytes # (0.6-4.6) K/mcL Monocytes # (0.0-1.3) K/mcL Eosinophils # (0.0-0.6) K/mcL Basophils # (0.0-0.2) K/mcL D-Dimer (0-500) ng/mLFEU VBG pH 7.30 L (7.32-7.42) pH Units VBG pCO2 57 H (41-51) mmHg VBG pO2 56 H (25-50) mmHg VBG HCO3 28 H (21-27) mEq/L Sodium (136-145) mEq/L Potassium (3.5-5.1) mEq/L Chloride (98-107) mEq/L Carbon Dioxide (23-29) mEq/L BUN (8-23) mg/dL Creatinine (0.60-1.20) mg/dL Est GFR ( Amer) (> 60) Est GFR (Non-Af Amer) (> 60) BUN/Creatinine Ratio (6-26) Glucose (70-105) mg/dL Calculated Osmolality (280-300) Lactic Acid 1.5 (0.5-2.2) mmol/L Calcium (8.6-10.3) mg/dL Troponin I (< 0.04) ng/mL B-Natriuretic Peptide 16 (Less than 100) pg/mL - Radiology Data Radiology results reviewed: Yes I reviewed the patient's radiology results. Chest X-Ray 09/08/17 03:34 IMPRESSION: Hyperinflated lungs suggests underlying obstructive small airways disease. No focal airspace disease. D/ / Mario Alberto Chaidez / Mario Alberto Chaidez Interpreting Provider: Mario Alberto Chaidez Chest CTA 09/08/17 04:26 IMPRESSION: Negative for acute pulmonary embolism. Moderate emphysema and smoking-related airway inflammation. No consolidative airspace disease. Severe esophageal wall thickening, similar to prior exam, could reflect sequela of chronic recurrent reflux. Recommend further evaluation with esophagram and/or endoscopy. D/ / Mario Alberto Chaidez / Mario Alberto Chaidez Interpreting Provider: Mario Alberto Chaidez - EKG Data EKG #1 EKG attestation: Yes I reviewed and interpreted this EKG. EKG results narrative: EKG done at 3:31 shows sinus tachycardia rate 121 bpm. Normal axis. No signs of ST elevation, ST depression or Q waves present. No signs of ischemia.
--- NOTE | 2017-09-08 03:57 | Emergency Department Note ---
Disposition Clinical Impression: COPD exacerbation, Elevated troponin Disposition: Admitted As Inpatient Condition: Fair General Adult HPI - General Chief complaint: ED Shortness of Breath/Dyspnea Stated complaint: difficulty breathing Time Seen by Provider: 09/08/17 03:26 Source: patient, EMS Limitations: no limitations - History of Present Illness Pain Scale: 0 - Related Data Home Medications Medication Instructions Recorded Confirmed Albuterol Sulfate [Ventolin Hfa] 1 puff IH Q4-6H PRN 09/08/17 09/08/17 Ascorbate Calcium [Vitamin C] 500 mg PO DAILY 09/08/17 09/08/17 Aspirin [Lo-Dose Aspirin EC] 81 mg PO DAILY 09/08/17 09/08/17 Cholecalciferol (D-3) [Vitamin D] 1,000 unit PO DAILY 09/08/17 09/08/17 Cyanocobalamin (Vitamin B-12) 1,000 mcg PO DAILY 09/08/17 09/08/17 [Vitamin B-12] Duloxetine HCl [Cymbalta] 60 mg PO DAILY 09/08/17 09/08/17 Gabapentin [Neurontin] 100 mg PO TID 09/08/17 09/08/17 Ipratropium/Albuterol Neb [Duoneb] 3 ml IH Q4-6H PRN 09/08/17 09/08/17 Lisinopril/Hydrochlorothiazide 1 tab PO DAILY 09/08/17 09/08/17 [Zestoretic 20-12.5 mg Tablet] [place]-3/Dha/Epa/Fish Oil [Fish Oil 1 cap PO DAILY 09/08/17 09/08/17 1,000 mg Softgel] Umeclidinium [place] [Incruse 1 puff IH DAILY 09/08/17 09/08/17 Ellipta] diazePAM [Valium] 10 mg PO BID 09/08/17 Previous Rx's Medication Instructions Recorded Aspirin Enteric Coated [Aspirin EC] 81 mg PO DAILY tablet. 09/12/17 Atorvastatin [Lipitor] 40 mg PO HS #30 tablet 09/12/17 Azithromycin [Zithromax] 500 mg PO Q24H #1 tablet 09/12/17 Metoprolol [Lopressor] 12.5 mg PO BID #30 tablet 09/12/17 predniSONE [PredniSONE] 40 mg PO DAILY #10 tablet 09/12/17 Allergies Allergy/AdvReac Type Severity Reaction Status Date / Time propoxyphene AdvReac Mild Nausea Verified 09/08/17 08:20 naproxen AdvReac See Verified 09/08/17 08:20 Comments Past Medical History - Past Medical History Medical history: Reports: cancer, COPD, hypertension, other Surgical history: Reports: hysterectomy Psychiatric history: Reports: anxiety, depression - Social History Smoking Status: Light tobacco smoker Smokeless Tobacco Status: No Alcohol use: Reports: none Drug use: Reports: none Physical Exam - General Limitations: no limitations General appearance: alert Course Vital Signs Temperature 98.1 F 09/08/17 03:24 Pulse Rate 122 09/08/17 03:24 Respiratory Rate 24 09/08/17 03:24 Blood Pressure 147/55 09/08/17 03:24 O2 Sat by Pulse Oximetry 90 09/08/17 03:24 Temperature 97.9 F 09/12/17 06:35 Pulse Rate 61 09/12/17 06:35 Respiratory Rate 15 09/12/17 06:35 Blood Pressure 123/76 09/12/17 06:35 O2 Sat by Pulse Oximetry 100 09/12/17 06:35 Oxygen Delivery Oxygen Delivery Bipap Medical Decision Making - Lab Data Result diagrams: 09/11/17 01:30 09/11/17 01:30 Lab Results 09/08/17 09/08/17 09/08/17 Range/Units 03:53 03:53 03:53 WBC 13.2 H (4.3-11.1) K/mcL RBC 4.89 (3.82-4.97) M/mcL Hgb 14.9 (11.5-15.4) g/dL Hct 44.6 (35.3-44.9) % MCV 91.2 (83.0-100.0) fL MCH 30.5 (28.0-33.3) pg MCHC 33.4 (31.6-35.5) g/dL RDW 13.7 (11.5-14.5) % Plt Count 251 (140-400) K/mcL MPV 9.3 L (9.4-12.4) fL Immature Gran % 0.5 (0-4) % Seg Neutrophils % 71.5 % Lymphocytes % 14.5 % Monocytes % 6.9 % Eosinophils % 6.3 % Basophils % 0.3 % Neutrophils # 9.5 H (1.6-8.9) K/mcL Lymphocytes # 1.9 (0.6-4.6) K/mcL Monocytes # 0.9 (0.0-1.3) K/mcL Eosinophils # 0.8 H (0.0-0.6) K/mcL Basophils # 0.0 (0.0-0.2) K/mcL D-Dimer 791 H (0-500) ng/mLFEU VBG pH (7.32-7.42) pH Units VBG pCO2 (41-51) mmHg VBG pO2 (25-50) mmHg VBG HCO3 (21-27) mEq/L Sodium 138 (136-145) mEq/L Potassium 4.0 (3.5-5.1) mEq/L Chloride 104 (98-107) mEq/L Carbon Dioxide 24 (23-29) mEq/L BUN 21 (8-23) mg/dL Creatinine 1.05 (0.60-1.20) mg/dL Est GFR ( Amer) > 60 (> 60) Est GFR (Non-Af Amer) 52 L (> 60) BUN/Creatinine Ratio 20 (6-26) Glucose 153 H (70-105) mg/dL Calculated Osmolality 292 (280-300) Lactic Acid (0.5-2.2) mmol/L Calcium 9.1 (8.6-10.3) mg/dL Troponin I 0.12 H* (< 0.04) ng/mL B-Natriuretic Peptide (Less than 100) pg/mL 09/08/17 09/08/17 09/08/17 Range/Units 03:53 03:53 04:37 WBC (4.3-11.1) K/mcL RBC (3.82-4.97) M/mcL Hgb (11.5-15.4) g/dL Hct (35.3-44.9) % MCV (83.0-100.0) fL MCH (28.0-33.3) pg MCHC (31.6-35.5) g/dL RDW (11.5-14.5) % Plt Count (140-400) K/mcL MPV (9.4-12.4) fL Immature Gran % (0-4) % Seg Neutrophils % % Lymphocytes % % Monocytes % % Eosinophils % % Basophils % % Neutrophils # (1.6-8.9) K/mcL Lymphocytes # (0.6-4.6) K/mcL Monocytes # (0.0-1.3) K/mcL Eosinophils # (0.0-0.6) K/mcL Basophils # (0.0-0.2) K/mcL D-Dimer (0-500) ng/mLFEU VBG pH 7.30 L (7.32-7.42) pH Units VBG pCO2 57 H (41-51) mmHg VBG pO2 56 H (25-50) mmHg VBG HCO3 28 H (21-27) mEq/L Sodium (136-145) mEq/L Potassium (3.5-5.1) mEq/L Chloride (98-107) mEq/L Carbon Dioxide (23-29) mEq/L BUN (8-23) mg/dL Creatinine (0.60-1.20) mg/dL Est GFR ( Amer) (> 60) Est GFR (Non-Af Amer) (> 60) BUN/Creatinine Ratio (6-26) Glucose (70-105) mg/dL Calculated Osmolality (280-300) Lactic Acid 1.5 (0.5-2.2) mmol/L Calcium (8.6-10.3) mg/dL Troponin I (< 0.04) ng/mL B-Natriuretic Peptide 16 (Less than 100) pg/mL Attestation Statement - Attestation Attestation: I examined this patient and my medical decision-making was reviewed with the Resident Physician. I agree with the documented findings, disposition and treatment plan as described except to the extent set forth below. Patient with severe COPD exacerbation. We will place on BiPAP. We will start steroids, antibiotics. We will admit for further management on BiPAP. I spent greater than 35 minutes critical care time resuscitating this acutely ill patient suffering from COPD exacerbation. This was excluding billable procedures.
[2017-09-08] MEDS ORDERED: Azithromycin 500 MG in D5% in Water 250 ML IVPB ONE (04:00)
[2017-09-08 04:05] LABS: Basophils % 0.3 %; Eosinophils # 0.8 K/mcL (0.0-0.6); Eosinophils % 6.3 %; Hematocrit 44.6 % (35.3-44.9); Hemoglobin 14.9 g/dL (11.5-15.4); Immature Granulocytes % 0.5 % (0-4); Lymphocytes # 1.9 K/mcL (0.6-4.6); Lymphocytes % 14.5 %; Mean Corpuscular HGB Conc 33.4 g/dL (31.6-35.5); Mean Corpuscular Hemoglobin 30.5 pg (28.0-33.3); Mean Corpuscular Volume 91.2 fL (83.0-100.0); Mean Platelet Volume 9.3 fL (9.4-12.4); Monocytes # 0.9 K/mcL (0.0-1.3); Monocytes % 6.9 %; Neutrophils # 9.5 K/mcL (1.6-8.9); Platelet Count 251 K/mcL (140-400); Red Blood Count 4.89 M/mcL (3.82-4.97); Red Cell Distribution Width 13.7 % (11.5-14.5); Segmented Neutrophils % 71.5 %
[2017-09-08 04:26] LABS: Troponin I 0.12 ng/mL (< 0.04)
[2017-09-08] MEDS ORDERED: Isovue-370 500 ML INFUS..BTL IV ONE (04:26)
[2017-09-08 04:28] LABS: BUN/Creatinine Ratio 20 (6-26); Blood Urea Nitrogen 21 mg/dL (8-23); Calcium 9.1 mg/dL (8.6-10.3); Carbon Dioxide 24 mEq/L (23-29); Chloride 104 mEq/L (98-107); Glucose 153 mg/dL (70-105); Osmolality,Calculated 292 (280-300); Sodium 138 mEq/L (136-145); eGFR For African Americans > 60 (> 60); eGFR For Non-African Americans 52 (> 60)
[2017-09-08] MEDS ORDERED: Aspirin 81 MG TAB.CHEW PO STA ×2 (04:34→05:20)
[2017-09-08 04:44] LABS: VBG HCO3 28 mEq/L (21-27); VBG PCO2 57 mmHg (41-51); VBG PO2 56 mmHg (25-50)
[2017-09-08] MEDS ORDERED: traMADol 50 MG TABLET PO PRN (08:48)
[2017-09-08] MEDS ORDERED: Naloxone 0.4 MG/ML INJ IVP PRN (08:48)
[2017-09-08] MEDS ORDERED: Acetaminophen 325 MG TABLET PO PRN (08:48)
[2017-09-08] MEDS ORDERED: diazePAM 10 MG TABLET PO PRN (08:51)
[2017-09-08] MEDS ORDERED: Azithromycin 500 MG in D5% in Water 250 ML IVPB SCH (09:00)
[2017-09-08] MEDS: Aspirin Enteric Coated 81 MG Tablet PO SCH (10:18)
[2017-09-08] MEDS: Cyanocobalamin (B-12) 1,000 MCG TABLET PO SCH (10:18)
[2017-09-08] MEDS: Lisinopril-HCTZ 20-12.5mg TABLET PO SCH (10:18)
[2017-09-08] MEDS: Ipratropium/Albuterol Neb 3 ML IH SCH ×4 (10:53→23:33)
--- NOTE | 2017-09-08 11:05 | Internal Med History&Physical ---
Date of Encounter: 09/08/17 Time of Encounter: 08:40 Internal Medicine - H&P: HPI Chief complaint: Shortness of breath Admitted From: Emergency Dept Plans for Post Hospital Care: Home History of present illness: Ms. Whipple is a 71 year old female with history of COPD, who presents with a 2 to three-day history of shortness of breath. Patient lives alone and she does have home oxygen and nebulizer. She reports worsening shortness of breath associated with dry cough and wheezing and chest tightness for the last 2 days, that got worse last night. Her symptoms are worse when she tries to get out of bed and even with minimal exertion. No fever, chills, chest pain, dizziness or syncope. She has not been treated with antibiotics or steroids as outpatient. She has been using her continuous home oxygen along with breathing treatments with no improvement in symptoms. No sick contacts at home. Past Med Surg Social Fam HX - Past Medical History Source: patient, old records reviewed Medical history: cancer (kidney), COPD, coronary artery disease, hypertension, renal disease, other Additional medical history: kidney cancer Psychiatric history: anxiety, depression - Past Surgical History Surgical History: hysterectomy, other (B/L renal tumors removal) Additional surgical history: kidney cancer - Social History Smoking Status: Current some day smoker Packs per day: 1 pack per week Smokeless Tobacco Status: No Alcohol use: none Drug use: none Occupational status: retired Current living situation: Home - Independent Activity Level: Independent ambulation Recent Out of Country Travel Within the Last 8 Weeks: No Exposure or Possible Exposure to Illness During Travel: No - Family History Sister Hx Family Endocrine Disorder: Yes (dm) Internal Medicine - H&P: Meds Albuterol Sulfate [Ventolin Hfa] 1 puff IH Q4-6H PRN 09/08/17 [History] Ascorbate Calcium [Vitamin C] 500 mg PO DAILY 09/08/17 [History] Aspirin [Lo-Dose Aspirin EC] 81 mg PO DAILY 09/08/17 [History] Cholecalciferol (D-3) [Vitamin D] 1,000 unit PO DAILY 09/08/17 [History] Cyanocobalamin (Vitamin B-12) [Vitamin B-12] 1,000 mcg PO DAILY 09/08/17 [ History] Duloxetine HCl [Cymbalta] 60 mg PO DAILY 09/08/17 [History] Gabapentin [Neurontin] 100 mg PO TID 09/08/17 [History] Ipratropium/Albuterol Neb [Duoneb] 3 ml IH Q4-6H PRN 09/08/17 [History] Lisinopril/Hydrochlorothiazide [Zestoretic 20-12.5 mg Tablet] 1 tab PO DAILY [History] [place]-3/Dha/Epa/Fish Oil [Fish Oil 1,000 mg Softgel] 1 cap PO DAILY 09/08/17 [ History] Umeclidinium [place] [Incruse Ellipta] 1 puff IH DAILY 09/08/17 [History] diazePAM [Valium] 10 mg PO BID 09/08/17 [History] 3 Allergy/AdvReac Type Severity Reaction Status Date / Time gabapentin [From Neurontin] AdvReac Mild See Verified 09/08/17 08:20 Comments propoxyphene AdvReac Mild Nausea Verified 09/08/17 08:20 naproxen AdvReac See Verified 09/08/17 08:20 Comments All Systems PM: A 10-system review of systems was performed and is negative for pertinent findings except as documented above in the HPI. - Constitutional Constitutional: no chills, no fever(s), no night sweats - EENT Eyes: no change in vision, no discharge, no pain, no photophobia Ears: no ear discharge, no ear pain, no tinnitus Nose, mouth and throat: no dysphagia, no nasal discharge, no neck pain, no sore throat - Cardiovascular Cardiovascular ROS IM: no chest pain, no diaphoresis, no dyspnea, no lightheadedness, no palpitations, no syncope - Respiratory Respiratory: cough, dyspnea on exertion, wheezing - Gastrointestinal Gastrointestinal: no abdominal pain, no diarrhea, no hematemesis, no hematochezia, no melena, no nausea, no vomiting - Genitourinary Genitourinary: no change in urinary stream, no dysuria, no flank pain, no hematuria - Musculoskeletal Musculoskeletal ROS IM: no numbness, no tingling - Integumentary Integumentary IM: no rash, no unusual bruising - Neurological Neurological ROS: no confusion, no convulsions, no focal weakness, no numbness, no tingling, no tremor(s) - Hematologic/Lymphatic Hematologic/Lymphatic: no easy bruising - Constitutional Vitals: Temp Pulse Resp BP Pulse Ox 98.0 F 104 25 117/68 98 09/08/17 09:13 09/08/17 09:13 09/08/17 10:55 09/08/17 09:13 09/08/17 10:55 General appearance: Present: mild distress (on BiPAP), A&O X 3, answers questions appropriately - Respiratory Respiratory exam: Present: decreased breath sounds (B/L decreased air entry), CTAB. Absent: accessory muscle use, rales, rhonchi, wheezes - Cardiovascular Cardiovascular exam: Present: RRR, +S1, +S2. Absent: diastolic murmur, gallop, rubs, systolic murmur - GI/Abdominal GI/Abdominal exam: Present: normal bowel sounds, soft, no peritoneal signs. Absent: distended, tenderness - Extremities Exam Extremities exam: Present: full ROM, warm, radial pulses palpable and symmetrical. Absent: calf tenderness, cyanotic, pedal edema - Neurological Exam Neurological exam: Present: CN II-XII intact, oriented X3, no focal deficits. Absent: pronater drift, facial droop, speech deficit - Skin Skin exam: Present: dry, intact Internal Med - H&P Results - Labs CBC & Chem 7: 09/08/17 03:53 09/08/17 03:53 Labs: Cardiac Enzymes 09/08/17 Range/Units 10:25 Troponin I 0.19 H* (< 0.04) ng/mL - Assessment and plan (1) COPD exacerbation Current Visit: Yes Status: Acute Assessment and plan: Continue IV steroids, scheduled bronchodilator nebulization, supplemental oxygen with when necessary BiPAP support. Macrolide antibiotics. Chest x-ray shows no evidence of pneumonia. CT angiogram of chest shows no PE. Wean down FiO2 as tolerated. Patient does have 2 L/m continuous home oxygen. (2) Acute and chronic respiratory failure Current Visit: Yes Status: Acute Assessment and plan: Due to acute exacerbation of COPD. Continue supplemental oxygen and BiPAP support as needed. ABG shows mild respiratory acidosis with pH 7.3, PCO2 57, PaO2 56. Repeat ABG in a.m. Remaining plan as mentioned below. Qualifiers: Respiratory failure complication: hypoxia and hypercapnia Qualified Code(s) : J96.21 - Acute and chronic respiratory failure with hypoxia; J96.22 - Acute and chronic respiratory failure with hypercapnia (3) Anxiety and depression Current Visit: Yes Status: Chronic Assessment and plan: resume home meds; (4) Tobacco abuse Current Visit: Yes Status: Chronic Assessment and plan: Smoking cessation discussed, patient reports that her blood pressure increases when she tries to stop smoking, due to anxiety. Continue when necessary nicotine transdermal patch. (5) Fibromyalgia Current Visit: Yes Status: Chronic (6) CKD (chronic kidney disease) stage 3, GFR 30-59 ml/min Current Visit: Yes Status: Chronic Assessment and plan: Serum creatinine currently stable. Monitor creatinine closely as she received IV contrast for CT chest. (7) HTN (hypertension) Current Visit: Yes Status: Chronic Qualifiers: Hypertension type: essential hypertension Qualified Code(s): I10 - Essential (primary) hypertension (8) CAD (coronary artery disease) Current Visit: Yes Status: Chronic Qualifiers: Coronary Disease-Associated Artery/Lesion type: [place] artery [place] vs. transplanted heart: [place] heart Associated angina: without angina Qualified Code(s): I25.10 - Atherosclerotic heart disease of [place] coronary artery without angina pectoris (9) HLD (hyperlipidemia) Current Visit: Yes Status: Chronic Qualifiers: Hyperlipidemia type: unspecified Qualified Code(s): E78.5 - Hyperlipidemia , unspecified (10) Elevated troponin Current Visit: Yes Status: Acute Assessment and plan: Likely related to demand ischemia and hypoxemia. Start aspirin and statin. Hold anticoagulation for now. EKG shows no acute ischemic changes. Continue telemetry monitoring. Cycle troponins. - Time Spent With Patient Total time spent is greater than 50% in coordination of care (as documented) at patient's floor/unit and/or counseling patient:
[2017-09-08] MEDS: *HR* Heparin 5,000 UNIT/ML VIAL SQ SCH ×2 (16:57→23:20)
[2017-09-08] MEDS: MethylPREDNISolone 40 MG/ML VIAL IVP SCH ×2 (16:57→23:20)
[2017-09-08] MEDS: *HR* OxyCODONE Immed Rel 5 MG TABLET PO PRN (20:20)
[2017-09-09] MEDS: Ipratropium/Albuterol Neb 3 ML IH SCH ×6 (04:01→23:52)
[2017-09-09 04:25] LABS: Basophils % 0.1 %; Eosinophils % 0.1 %; Hematocrit 42.9 % (35.3-44.9); Immature Granulocytes % 0.7 % (0-4); Lymphocytes # 1.3 K/mcL (0.6-4.6); Lymphocytes % 8.7 %; Mean Corpuscular HGB Conc 32.6 g/dL (31.6-35.5); Mean Corpuscular Hemoglobin 30.4 pg (28.0-33.3); Mean Corpuscular Volume 93.3 fL (83.0-100.0); Mean Platelet Volume 9.6 fL (9.4-12.4); Monocytes # 0.3 K/mcL (0.0-1.3); Monocytes % 1.8 %; Neutrophils # 13.1 K/mcL (1.6-8.9); Platelet Count 252 K/mcL (140-400); Segmented Neutrophils % 88.6 %
[2017-09-09 04:51] LABS: Chol/HDL Ratio 3.9 (0-4.9)
[2017-09-09 04:52] LABS: Calcium 9.1 mg/dL (8.6-10.3); Potassium 4.4 mEq/L (3.5-5.1)
[2017-09-09 08:32] LABS: ABG Base Excess -1 mEq/L (-2 to 3); ABG HCO3 24 mEq/L (21-27); ABG Oxygen Saturation 94 % (95-98); ABG PCO2 42 mmHg (35-45); ABG PH 7.38 pH Units (7.32-7.45); ABG PO2 74 mmHg (85-104); ABG TCO2 26 mEq/L (20-26)
[2017-09-09] MEDS: MethylPREDNISolone 40 MG/ML VIAL IVP SCH ×2 (10:28→20:20)
[2017-09-09] MEDS: *HR* Heparin 5,000 UNIT/ML VIAL SQ SCH ×3 (10:28→23:44)
[2017-09-09] MEDS: Azithromycin 500 MG in D5% in Water 250 ML IVPB SCH (10:29)
[2017-09-09] MEDS: Cyanocobalamin (B-12) 1,000 MCG TABLET PO SCH (10:30)
[2017-09-09] MEDS: Aspirin Enteric Coated 81 MG Tablet PO SCH (10:30)
[2017-09-09] MEDS: Lisinopril-HCTZ 20-12.5mg TABLET PO SCH (10:30)
[2017-09-09] MEDS: *HR* OxyCODONE Immed Rel 5 MG TABLET PO PRN (16:00)
[2017-09-09] MEDS: Gabapentin 100 MG CAPSULE PO SCH ×2 (16:00→20:20)
--- NOTE | 2017-09-09 16:21 | Internal Med Progress Note ---
Date of Encounter: 09/09/17 Time of Encounter: 09:15 - Assessment and plan (1) COPD exacerbation Current Visit: Yes Status: Acute Assessment and plan: improving; taper down IV steroids as tolerated, continue scheduled bronchodilator nebulization, supplemental oxygen with when necessary BiPAP support. Macrolide antibiotics. Chest x-ray shows no evidence of pneumonia. CT angiogram of chest shows no PE. Wean down FiO2 as tolerated. Patient does have 2 L/m continuous home oxygen. (2) Acute and chronic respiratory failure Current Visit: Yes Status: Acute Assessment and plan: Due to acute exacerbation of COPD. Continue supplemental oxygen and BiPAP support as needed. ABG shows mild respiratory acidosis with pH 7.3, PCO2 57, PaO2 56. Repeat ABG shows normal pH and improved pCO2; Remaining plan as mentioned above. Qualifiers: Respiratory failure complication: hypoxia and hypercapnia Qualified Code(s) : J96.21 - Acute and chronic respiratory failure with hypoxia; J96.22 - Acute and chronic respiratory failure with hypercapnia (3) Anxiety and depression Current Visit: Yes Status: Chronic Assessment and plan: resume home meds; (4) Tobacco abuse Current Visit: Yes Status: Chronic Assessment and plan: Continue when necessary nicotine transdermal patch. (5) Fibromyalgia Current Visit: Yes Status: Chronic (6) CKD (chronic kidney disease) stage 3, GFR 30-59 ml/min Current Visit: Yes Status: Chronic Assessment and plan: Serum creatinine slightly worse but stable, 1.28. Monitor creatinine closely as she received IV contrast for CT chest. (7) HTN (hypertension) Current Visit: Yes Status: Chronic Qualifiers: Hypertension type: essential hypertension Qualified Code(s): I10 - Essential (primary) hypertension (8) CAD (coronary artery disease) Current Visit: Yes Status: Chronic Qualifiers: Coronary Disease-Associated Artery/Lesion type: [place] artery [place] vs. transplanted heart: [place] heart Associated angina: without angina Qualified Code(s): I25.10 - Atherosclerotic heart disease of [place] coronary artery without angina pectoris (9) HLD (hyperlipidemia) Current Visit: Yes Status: Chronic Qualifiers: Hyperlipidemia type: unspecified Qualified Code(s): E78.5 - Hyperlipidemia , unspecified (10) Elevated troponin Current Visit: Yes Status: Acute Assessment and plan: Likely related to demand ischemia and hypoxemia. Serial Troponins trending down ; On aspirin and statin. EKG shows no acute ischemic changes. Continue telemetry monitoring. - Time Spent With Patient Total time spent is greater than 50% in coordination of care (as documented) at patient's floor/unit and/or counseling patient: - Subjective Interval history: Reports feeling better; speaks in full sentences, without dyspnea; no chest pain ; has been coughing most of the night; no fever/chills; tolerates oral diet; - Constitutional Vitals: Temp Pulse Resp BP Pulse Ox 97.7 F 112 16 121/72 95 09/09/17 15:04 09/09/17 15:04 09/09/17 15:04 09/09/17 15:04 09/09/17 15:04 General appearance: Present: A&O X 3, answers questions appropriately - Respiratory Respiratory exam: Present: CTAB (coarse breath sounds B/L). Absent: accessory muscle use, rales, rhonchi, wheezes - Cardiovascular Cardiovascular exam: Present: RRR, +S1, +S2, tachycardia. Absent: diastolic murmur, gallop, rubs, systolic murmur - GI/Abdominal GI/Abdominal exam: Present: normal bowel sounds, soft, no peritoneal signs. Absent: distended, tenderness - Extremities Exam Extremities exam: Present: full ROM, warm, radial pulses palpable and symmetrical. Absent: calf tenderness, cyanotic, pedal edema - Neurological Exam Neurological exam: Present: CN II-XII intact, oriented X3, no focal deficits. Absent: pronater drift, facial droop, speech deficit Internal Medicine: Result - Labs CBC & Chem 7: 09/09/17 04:03 09/09/17 04:03 Labs: Short CBC 09/09/17 Range/Units 04:03 WBC 14.8 H (4.3-11.1) K/mcL Hgb 14.0 (11.5-15.4) g/dL Hct 42.9 (35.3-44.9) % Plt Count 252 (140-400) K/mcL Neutrophils # 13.1 H (1.6-8.9) K/mcL BMP 09/09/17 04:03 Sodium 137 Potassium 4.4 Chloride 103 Carbon Dioxide 25 BUN 41 H Creatinine 1.28 H Glucose 181 H Calcium 9.1 Cardiac Enzymes 09/08/17 09/08/17 Range/Units 16:11 22:35 Troponin I 0.09 H* 0.06 H* (< 0.04) ng/mL - ABG Interpretation ABG results: ABG ABG pH 7.38 pH Units (7.32-7.45) 09/09/17 08:28 ABG pCO2 42 mmHg (35-45) 09/09/17 08:28 ABG pO2 74 mmHg (85-104) L 09/09/17 08:28 ABG O2 Saturation 94 % (95-98) L 09/09/17 08:28 PT/INR, D-dimer D-Dimer 791 ng/mLFEU (0-500) H 09/08/17 03:53 - Impressions Impressions Echocardiogram 09/08/17 11:04 Impressions: LVEF 70%. Normal LV chamber size, wall thickness and function. Mild left ventricular diastolic dysfunction. Normal right ventricular structure and function. Unable to estimate RVSP due to lack of TR jet. No significant valvular dysfunction. Findings: Study Quality * Technically sub-optimal due to poor echocardiographic windows. ECG Findings * Normal sinus rhythm. Left Ventricle * LVEF 70%. * Normal LV chamber size, wall thickness and function. * Mild left ventricular diastolic dysfunction. Right Ventricle * Normal right ventricular structure and function. Left Atrium * Normal left atrial size. Right Atrium * Normal right atrial size. Aortic Valve * Aortic valve not well visualized. * No aortic regurgitation. * No aortic stenosis. Mitral Valve * Normal mitral valve structure and function. * No mitral regurgitation. * No mitral stenosis. Tricuspid Valve * Normal tricuspid valve structure and function. * Trace tricuspid regurgitation. * No evidence of pulmonary hypertension. Pulmonic Valve * Pulmonic valve is not well visualized. * No pulmonic regurgitation. Aorta * Normally sized aortic root. Pericardium * The pericardium appears normal. IVC * Normal IVC dimensions and inspiratory collapse. Pulmonary Artery * Normal visualized portions of the main pulmonary artery. Consult Discharge Plan - Plan Referrals: Bryan Mai MD [Primary Care Provider] -
[2017-09-10] MEDS: Ipratropium/Albuterol Neb 3 ML IH SCH ×2 (03:29→07:21)
[2017-09-10 04:30] LABS: Hematocrit 40.7 % (35.3-44.9); Hemoglobin 13.5 g/dL (11.5-15.4); Immature Granulocytes % 0.8 % (0-4); Lymphocytes % 10.2 %; Mean Corpuscular HGB Conc 33.2 g/dL (31.6-35.5); Mean Corpuscular Hemoglobin 30.5 pg (28.0-33.3); Mean Corpuscular Volume 91.9 fL (83.0-100.0); Mean Platelet Volume 9.5 fL (9.4-12.4); Monocytes % 2.3 %; Platelet Count 272 K/mcL (140-400); Red Blood Count 4.43 M/mcL (3.82-4.97); Red Cell Distribution Width 13.6 % (11.5-14.5); Segmented Neutrophils % 86.6 %
[2017-09-10 04:31] LABS: Basophils % 0.1 %; Lymphocytes # 1.6 K/mcL (0.6-4.6); Monocytes # 0.4 K/mcL (0.0-1.3); Neutrophils # 13.3 K/mcL (1.6-8.9)
[2017-09-10 04:38] LABS: Calcium 9.4 mg/dL (8.6-10.3); Potassium 4.5 mEq/L (3.5-5.1)
[2017-09-10] MEDS: *HR* OxyCODONE Immed Rel 5 MG TABLET PO PRN (07:57)
[2017-09-10] MEDS: Azithromycin 500 MG in D5% in Water 250 ML IVPB SCH (07:58)
[2017-09-10] MEDS: Lisinopril-HCTZ 20-12.5mg TABLET PO SCH (08:00)
[2017-09-10] MEDS: Gabapentin 100 MG CAPSULE PO SCH ×3 (08:00→22:21)
[2017-09-10] MEDS: *HR* Heparin 5,000 UNIT/ML VIAL SQ SCH ×2 (08:00→15:08)
[2017-09-10] MEDS: Cyanocobalamin (B-12) 1,000 MCG TABLET PO SCH (08:00)
[2017-09-10] MEDS: Aspirin Enteric Coated 81 MG Tablet PO SCH (08:00)
[2017-09-10] MEDS ORDERED: Dextrose Gel 15 GM/37.5 ML TUBE PO PRN ×2 (08:15)
[2017-09-10] MEDS ORDERED: *HR* Dextrose 50 % in Water (Syg) 50 ML SYRINGE IVP PRN (08:15)
[2017-09-10] MEDS ORDERED: D5% in Water 1,000 ML IVC PRN (08:15)
[2017-09-10] MEDS ORDERED: Ipratropium/Albuterol Neb 3 ML IH PRN (08:16)
[2017-09-10 09:32] LABS: Estimated Average Glucose 143 mg/dl; Hemoglobin A1C 6.6 %
[2017-09-10] MEDS: Insulin LISPRO 300 UNITS/3 ML VIAL SQ SCH ×3 (11:25→22:21)
--- NOTE | 2017-09-10 16:56 | Internal Med Progress Note ---
Date of Encounter: 09/10/17 Time of Encounter: 09:30 - Assessment and plan (1) COPD exacerbation Current Visit: Yes Status: Acute Assessment and plan: improving; taper down IV steroids as tolerated, continue scheduled bronchodilator nebulization, supplemental oxygen with when necessary BiPAP support. Macrolide antibiotics. Chest x-ray shows no evidence of pneumonia. CT angiogram of chest shows no PE. Wean down FiO2 as tolerated. Patient does have 2 L/m continuous home oxygen. noted to have persistent tachycardia, started beta nikky; (2) Acute and chronic respiratory failure Current Visit: Yes Status: Acute Assessment and plan: Due to acute exacerbation of COPD. Continue supplemental oxygen and BiPAP support as needed. ABG shows mild respiratory acidosis with pH 7.3, PCO2 57, PaO2 56. Repeat ABG shows normal pH and improved pCO2; Remaining plan as mentioned above. Qualifiers: Respiratory failure complication: hypoxia and hypercapnia Qualified Code(s) : J96.21 - Acute and chronic respiratory failure with hypoxia; J96.22 - Acute and chronic respiratory failure with hypercapnia (3) Anxiety and depression Current Visit: Yes Status: Chronic Assessment and plan: resume home meds; (4) Tobacco abuse Current Visit: Yes Status: Chronic Assessment and plan: Continue when necessary nicotine transdermal patch. (5) Fibromyalgia Current Visit: Yes Status: Chronic (6) CKD (chronic kidney disease) stage 3, GFR 30-59 ml/min Current Visit: Yes Status: Chronic Assessment and plan: Serum creatinine slightly better, 1.15. Monitor creatinine closely and avoid nephrotoxic agents; (7) HTN (hypertension) Current Visit: Yes Status: Chronic Qualifiers: Hypertension type: essential hypertension Qualified Code(s): I10 - Essential (primary) hypertension (8) CAD (coronary artery disease) Current Visit: Yes Status: Chronic Qualifiers: Coronary Disease-Associated Artery/Lesion type: [place] artery [place] vs. transplanted heart: [place] heart Associated angina: without angina Qualified Code(s): I25.10 - Atherosclerotic heart disease of [place] coronary artery without angina pectoris (9) HLD (hyperlipidemia) Current Visit: Yes Status: Chronic Qualifiers: Hyperlipidemia type: unspecified Qualified Code(s): E78.5 - Hyperlipidemia , unspecified (10) Elevated troponin Current Visit: Yes Status: Resolved (11) Diabetes mellitus Current Visit: Yes Status: Chronic Assessment and plan: Patient reports that she has been a borderline diabetic. Noted to have increased random blood glucose. Steroid-induced hyperglycemia. Hemoglobin A1c noted to be 6.6%. Start Accu-Chek blood glucose monitoring with sliding scale insulin. Diabetic diet. Qualifiers: Diabetes mellitus type: type 2 Diabetes mellitus ocean transportation intermediary insulin use: without alf use Diabetes mellitus complication status: with hyperglycemia Qualified Code(s): E11.65 - Type 2 diabetes mellitus with hyperglycemia - Time Spent With Patient Total time spent is greater than 50% in coordination of care (as documented) at patient's floor/unit and/or counseling patient: - Subjective Interval history: Reports feeling better; continues to have intermittent dry cough. Heart rate noted to be elevated. Requiring at least 3 L oxygen via nasal cannula. - Constitutional Vitals: Temp Pulse Resp BP Pulse Ox 98.0 F 91 16 137/83 98 09/10/17 16:41 09/10/17 16:41 09/10/17 16:41 09/10/17 16:41 09/10/17 16:41 General appearance: Present: A&O X 3, answers questions appropriately - Respiratory Respiratory exam: Present: CTAB (coarse breath sounds B/L). Absent: accessory muscle use, rales, rhonchi, wheezes - Cardiovascular Cardiovascular exam: Present: RRR, +S1, +S2, tachycardia. Absent: diastolic murmur, gallop, rubs, systolic murmur - GI/Abdominal GI/Abdominal exam: Present: normal bowel sounds, soft, no peritoneal signs. Absent: distended, tenderness Internal Medicine: Result - Labs CBC & Chem 7: 09/10/17 04:04 09/10/17 04:04 Labs: Short CBC 09/10/17 Range/Units 04:04 WBC 15.4 H (4.3-11.1) K/mcL Hgb 13.5 (11.5-15.4) g/dL Hct 40.7 (35.3-44.9) % Plt Count 272 (140-400) K/mcL Neutrophils # 13.3 H (1.6-8.9) K/mcL BMP 09/10/17 04:04 Sodium 135 L Potassium 4.5 Chloride 102 Carbon Dioxide 26 BUN 39 H Creatinine 1.15 Glucose 200 H Calcium 9.4 - ABG Interpretation ABG results: ABG ABG pH 7.38 pH Units (7.32-7.45) 07/01/18 08:28 ABG pCO2 42 mmHg (35-45) 09/09/17 08:28 ABG pO2 74 mmHg (85-104) L 09/09/17 08:28 ABG O2 Saturation 94 % (95-98) L 09/09/17 08:28 PT/INR, D-dimer D-Dimer 791 ng/mLFEU (0-500) H 09/08/17 03:53 Consult Discharge Plan - Plan Referrals: Bryan Mai MD [Primary Care Provider] - 09/17/17 1:15 pm
--- NOTE | 2017-09-10 17:56 | Electrocardiograph Report ---
[address] [place] [address] Test Date: 2017-09-08 Pat Name: Jody Whipple Department: 104 Room: 2NE16 Gender: F Ld Teacher: ABDOUL : 1945 Requested By: Lei Decker Order Number: [id number] Reading MD: Jacoby Morales Measurements Intervals [place] Rate: 121 P: 82 [place]: 128 QRS: 58 QRSD: 75 T: 67 QT: 318 QTc: 390 Interpretive Statements SINUS TACHYCARDIA Electronically Signed On 09-10-2017 17:55:34 EDT by Jacoby Morales
[2017-09-11] MEDS: *HR* Heparin 5,000 UNIT/ML VIAL SQ SCH ×3 (01:22→17:26)
[2017-09-11 01:47] LABS: Basophils % 0.3 %; Eosinophils # 0.2 K/mcL (0.0-0.6); Eosinophils % 1.1 %; Hematocrit 44.2 % (35.3-44.9); Hemoglobin 14.6 g/dL (11.5-15.4); Immature Granulocytes % 0.8 % (0-4); Lymphocytes # 4.3 K/mcL (0.6-4.6); Lymphocytes % 28.5 %; Mean Corpuscular Hemoglobin 31.1 pg (28.0-33.3); Mean Platelet Volume 9.6 fL (9.4-12.4); Monocytes # 1.2 K/mcL (0.0-1.3); Monocytes % 7.8 %; Neutrophils # 9.2 K/mcL (1.6-8.9); Platelet Count 272 K/mcL (140-400); Red Cell Distribution Width 13.5 % (11.5-14.5); Segmented Neutrophils % 61.5 %
[2017-09-11 02:06] LABS: BUN/Creatinine Ratio 31 (6-26); Blood Urea Nitrogen 33 mg/dL (8-23); Calcium 9.3 mg/dL (8.6-10.3); Carbon Dioxide 28 mEq/L (23-29); Chloride 103 mEq/L (98-107); Glucose 114 mg/dL (70-105); Osmolality,Calculated 294 (280-300); Potassium 4.3 mEq/L (3.5-5.1); Sodium 138 mEq/L (136-145); eGFR For African Americans > 60 (> 60); eGFR For Non-African Americans 52 (> 60)
--- NOTE | 2017-09-11 08:00 | Internal Med Progress Note ---
<Dequan Moon - Last Filed: 09/11/17 17:47> Date of Encounter: 09/11/17 Time of Encounter: 14:00 - Assessment and plan (1) COPD exacerbation Current Visit: Yes Status: Acute Assessment and plan: She continues to be on 2.5 L of supplementary oxygen with necessary BiPAP as needed. Antibiotic (macrolide ) regimen has been shifted from IV to by mouth. (2) HLD (hyperlipidemia) Current Visit: Yes Status: Chronic Assessment and plan: patient continues to be on her home medication (Atorvastatin) Qualifiers: Hyperlipidemia type: unspecified Qualified Code(s): E78.5 - Hyperlipidemia , unspecified (3) CAD (coronary artery disease) Current Visit: Yes Status: Chronic Assessment and plan: patient continues to be on her home medication (ASA 81mg PO daily) Qualifiers: Coronary Disease-Associated Artery/Lesion type: [place] artery [place] vs. transplanted heart: [place] heart Associated angina: without angina Qualified Code(s): I25.10 - Atherosclerotic heart disease of [place] coronary artery without angina pectoris (4) HTN (hypertension) Current Visit: Yes Status: Chronic Assessment and plan: continue her home medications Qualifiers: Hypertension type: essential hypertension Qualified Code(s): I10 - Essential (primary) hypertension (5) CKD (chronic kidney disease) stage 3, GFR 30-59 ml/min Current Visit: Yes Status: Chronic Assessment and plan: Creatinine trending down and is at her baseline levels (1.05) . Continue to monitor her creatinine closely and avoid nephrotoxic agents. (6) Elevated troponin Current Visit: Yes Status: Resolved (7) Acute and chronic respiratory failure Current Visit: Yes Status: Acute Assessment and plan: Acute and chronic respiratory failure appears to have resolved. Qualifiers: Respiratory failure complication: hypoxia and hypercapnia Qualified Code(s) : J96.21 - Acute and chronic respiratory failure with hypoxia; J96.22 - Acute and chronic respiratory failure with hypercapnia (8) Anxiety and depression Current Visit: Yes Status: Chronic Assessment and plan: continue her home medications (9) Tobacco abuse Current Visit: Yes Status: Chronic Assessment and plan: Counselled on smoking cessation. (10) Fibromyalgia Current Visit: Yes Status: Chronic Assessment and plan: continue with her home medications for her fibromyalgia pain (11) Diabetes mellitus Current Visit: Yes Status: Chronic Assessment and plan: Accu-check with low dose Sliding Scale insulin. Diabetic Diet, her most recent blood Glucose was 114, with Hb A1c of 6.6. She could potentially be hyperglycemic secondary to steroid use for her COPD exacerbation Qualifiers: Diabetes mellitus type: type 2 Diabetes mellitus mcfp insulin use: without lobsterman use Diabetes mellitus complication status: with hyperglycemia Qualified Code(s): E11.65 - Type 2 diabetes mellitus with hyperglycemia - Time Spent With Patient Total time spent is greater than 50% in coordination of care (as documented) at patient's floor/unit and/or counseling patient: - Subjective Interval history: No acute events overnight. Patient endorses that her breathing is better than yesterday. 2 and half liter of oxygen at the moment. Patient denies any systemic signs like fever, shortness of breath as this PM. - Constitutional Vitals: Temp Pulse Resp BP Pulse Ox 98.2 F 91 16 121/71 94 09/11/17 06:29 09/11/17 06:29 09/11/17 06:29 09/11/17 06:29 09/11/17 06:29 General appearance: Present: A&O X 3, pleasant, answers questions appropriately - Head Additional comments: Normocephalic/atraumatic. - Neck Additional comments: Full range of motion, trachea midline, no lymphadenopathy appreciated. - Respiratory Additional comments: Bilateral wheezing secondary to smoking. - Cardiovascular Additional comments: Regular rate and rhythm no gallops murmurs or rubs. - GI/Abdominal Additional comments: No hepatomegaly, no splenomegaly no hyper or hypoactive bowel sounds appreciated. - Neurological Exam Additional comments: Alert and oriented 3 - Psychiatric Additional comments: Good mentation. Internal Medicine: Result - Labs CBC & Chem 7: 09/11/17 01:30 09/11/17 01:30 Labs: Short CBC 09/11/17 Range/Units 01:30 WBC 14.9 H (4.3-11.1) K/mcL Hgb 14.6 (11.5-15.4) g/dL Hct 44.2 (35.3-44.9) % Plt Count 272 (140-400) K/mcL Neutrophils # 9.2 H (1.6-8.9) K/mcL BMP 09/11/17 01:30 Sodium 138 Potassium 4.3 Chloride 103 Carbon Dioxide 28 BUN 33 H Creatinine 1.05 Glucose 114 H Calcium 9.3 - ABG Interpretation ABG results: ABG ABG pH 7.38 pH Units (7.32-7.45) 09/09/17 08:28 ABG pCO2 42 mmHg (35-45) 09/09/17 08:28 ABG pO2 74 mmHg (85-104) L 09/09/17 08:28 ABG O2 Saturation 94 % (95-98) L 09/09/17 08:28 PT/INR, D-dimer D-Dimer 791 ng/mLFEU (0-500) H 09/08/17 03:53 Consult Discharge Plan - Plan Instructions: Acute Respiratory Distress Syndrome (DC), Diabetes Mellitus Type 2 in Adults (DC), Chronic Obstructive Pulmonary Disease (DC), Chronic Hypertension (DC), Anxiety (DC), Cigarette Smoking and Your Health, Supervisor Engraving (GEN) Referrals: Bryan Mai MD [Primary Care Provider] - <Butch Griggs - Last Filed: 09/11/17 18:15> Date of Encounter: 09/11/17 - Assessment and plan (1) Acute and chronic respiratory failure Current Visit: Yes Status: Acute Qualifiers: Respiratory failure complication: hypoxia and hypercapnia Qualified Code(s) : J96.21 - Acute and chronic respiratory failure with hypoxia; J96.22 - Acute and chronic respiratory failure with hypercapnia (2) COPD exacerbation Current Visit: Yes Status: Acute (3) CAD (coronary artery disease) Current Visit: Yes Status: Chronic Qualifiers: Coronary Disease-Associated Artery/Lesion type: [place] artery [place] vs. transplanted heart: [place] heart Associated angina: without angina Qualified Code(s): I25.10 - Atherosclerotic heart disease of [place] coronary artery without angina pectoris (4) HLD (hyperlipidemia) Current Visit: Yes Status: Chronic Qualifiers: Hyperlipidemia type: mixed hyperlipidemia Qualified Code(s): E78.2 - Mixed hyperlipidemia (5) HTN (hypertension) Current Visit: Yes Status: Chronic Qualifiers: Hypertension type: essential hypertension Qualified Code(s): I10 - Essential (primary) hypertension (6) CKD (chronic kidney disease) stage 3, GFR 30-59 ml/min Current Visit: Yes Status: Chronic (7) Elevated troponin Current Visit: Yes Status: Resolved (8) Anxiety and depression Current Visit: Yes Status: Chronic (9) Tobacco abuse Current Visit: Yes Status: Chronic (10) Fibromyalgia Current Visit: Yes Status: Chronic (11) Diabetes mellitus Current Visit: Yes Status: Chronic Qualifiers: Diabetes mellitus type: type 2 Diabetes mellitus mcfp insulin use: without mcfp use Diabetes mellitus complication status: with hyperglycemia Qualified Code(s): E11.65 - Type 2 diabetes mellitus with hyperglycemia - Time Spent With Patient Total time spent is greater than 50% in coordination of care (as documented) at patient's floor/unit and/or counseling patient: - Constitutional Vitals: Temp Pulse Resp BP Pulse Ox 97.2 F L 100 16 132/89 94 09/11/17 15:50 09/11/17 15:50 09/11/17 15:50 09/11/17 15:50 09/11/17 15:50 Internal Medicine: Result - Labs CBC & Chem 7: 09/11/17 01:30 09/11/17 01:30 Labs: Short CBC 09/11/17 Range/Units 01:30 WBC 14.9 H (4.3-11.1) K/mcL Hgb 14.6 (11.5-15.4) g/dL Hct 44.2 (35.3-44.9) % Plt Count 272 (140-400) K/mcL Neutrophils # 9.2 H (1.6-8.9) K/mcL BMP 09/11/17 01:30 Sodium 138 Potassium 4.3 Chloride 103 Carbon Dioxide 28 BUN 33 H Creatinine 1.05 Glucose 114 H Calcium 9.3 - ABG Interpretation ABG results: ABG ABG pH 7.38 pH Units (7.32-7.45) 09/09/17 08:28 ABG pCO2 42 mmHg (35-45) 09/09/17 08:28 ABG pO2 74 mmHg (85-104) L 09/09/17 08:28 ABG O2 Saturation 94 % (95-98) L 09/09/17 08:28 PT/INR, D-dimer D-Dimer 791 ng/mLFEU (0-500) H 09/08/17 03:53 - Attending Attestation I examined this patient and my medical decision-making was reviewed with the Resident Physician on 09/11/17. I agree with the documented findings, disposition and treatment plan as described except to the extent set forth below. Ms Whipple is currently admitted for acute exac COPD. She remains moderate to high risk due to potential for worsening clinical status. Ms Whipple is doing somewhat better. She has not been up much. Still with some wheeze. No pain. Exam Alert Comfortable at rest Mucus membranes dry Heart reg Scant end exp wheeze Abd soft No edema I/P 1. Exac COPD 2. Tobacco abuse Further diagnoses and plan as above. Anticipate d/c tomorrow.
[2017-09-11] MEDS: Azithromycin 500 MG in D5% in Water 250 ML IVPB SCH (08:41)
[2017-09-11] MEDS: Cyanocobalamin (B-12) 1,000 MCG TABLET PO SCH (08:42)
[2017-09-11] MEDS: Insulin LISPRO 300 UNITS/3 ML VIAL SQ SCH ×4 (08:42→21:38)
[2017-09-11] MEDS: Aspirin Enteric Coated 81 MG Tablet PO SCH (08:42)
[2017-09-11] MEDS: Lisinopril-HCTZ 20-12.5mg TABLET PO SCH (08:42)
[2017-09-11] MEDS: Gabapentin 100 MG CAPSULE PO SCH ×3 (08:42→21:37)
[2017-09-11] MEDS ORDERED: MethylPREDNISolone 40 MG/ML VIAL IVP SCH (09:00)
[2017-09-11] MEDS ORDERED: Azithromycin 250 MG TABLET PO SCH (11:30)
[2017-09-11] MEDS: *HR* OxyCODONE Immed Rel 5 MG TABLET PO PRN (21:37)
[2017-09-12] MEDS: *HR* Heparin 5,000 UNIT/ML VIAL SQ SCH ×2 (00:52→09:32)
[2017-09-12 06:40] VITALS: BP 123/76
[2017-09-12] MEDS: Insulin LISPRO 300 UNITS/3 ML VIAL SQ SCH (07:33)
--- NOTE | 2017-09-12 08:34 | Discharge Summary ---
- NOTES TO OUTPATIENT PROVIDER Notes to Outpatient Provider: Pt admitted with acute [place] COPD. Has improved with steroids and supportive care. Date of Encounter: 09/12/17 Time of Encounter: 08:31 - Discharge Diagnosis (1) Acute and chronic respiratory failure Priority: Primary Status: Resolved Qualifiers: Respiratory failure complication: hypoxia and hypercapnia Qualified Code(s) : J96.21 - Acute and chronic respiratory failure with hypoxia; J96.22 - Acute and chronic respiratory failure with hypercapnia (2) COPD exacerbation Priority: Primary Status: Resolved (3) CAD (coronary artery disease) Priority: Secondary Status: Chronic Qualifiers: Coronary Disease-Associated Artery/Lesion type: [place] artery [place] vs. transplanted heart: [place] heart Associated angina: without angina Qualified Code(s): I25.10 - Atherosclerotic heart disease of [place] coronary artery without angina pectoris (4) HLD (hyperlipidemia) Priority: Secondary Status: Chronic Qualifiers: Hyperlipidemia type: mixed hyperlipidemia Qualified Code(s): E78.2 - Mixed hyperlipidemia (5) HTN (hypertension) Priority: Secondary Status: Chronic Qualifiers: Hypertension type: essential hypertension Qualified Code(s): I10 - Essential (primary) hypertension (6) CKD (chronic kidney disease) stage 3, GFR 30-59 ml/min Priority: Secondary Status: Chronic (7) Anxiety and depression Priority: Secondary Status: Chronic (8) Tobacco abuse Priority: Secondary Status: Chronic (9) Diabetes mellitus Priority: Secondary Status: Chronic Qualifiers: Diabetes mellitus type: type 2 Diabetes mellitus intermediate manager insulin use: without senior living use Diabetes mellitus complication status: with hyperglycemia Qualified Code(s): E11.65 - Type 2 diabetes mellitus with hyperglycemia (10) Fibromyalgia Priority: Secondary Status: Chronic Hospital course: Ms. Whipple is a 71 year old female with hx of COPD presented to ED with a 2 to 3 day history of dyspnea. She had cough and wheezeing as well. She was found to be in COPD exacerbation and subsequently admitted. [facility] She was started on aerosols, abx and steroids. She tolerated meds and slowly improved. She was able to ambulate and was on her home oxygen levels. Today she is afebrile. She feels nearly baseline. She feels ready for discharge home. Discharge discussed with: patient Time spent discussing smoking cessation with patient: 3 to 10 minutes - Time Spent with Patient Total time spent providing and/or coordinating discharge services: 40min - Discharge Medications Prescriptions: Atorvastatin [Lipitor] 40 mg PO HS #30 tablet Azithromycin [Zithromax] 500 mg PO Q24H #1 tablet Metoprolol [Lopressor] 12.5 mg PO BID #30 tablet predniSONE [PredniSONE] 40 mg PO DAILY #10 tablet Home Medications: Albuterol Sulfate [Ventolin Hfa] 1 puff IH Q4-6H PRN 09/08/17 [History] Ascorbate Calcium [Vitamin C] 500 mg PO DAILY 09/08/17 [History] Aspirin [Lo-Dose Aspirin EC] 81 mg PO DAILY 09/08/17 [History] Cholecalciferol (D-3) [Vitamin D] 1,000 unit PO DAILY 09/08/17 [History] Cyanocobalamin (Vitamin B-12) [Vitamin B-12] 1,000 mcg PO DAILY 09/08/17 [ History] Duloxetine HCl [Cymbalta] 60 mg PO DAILY 09/08/17 [History] Gabapentin [Neurontin] 100 mg PO TID 09/08/17 [History] Ipratropium/Albuterol Neb [Duoneb] 3 ml IH Q4-6H PRN 09/08/17 [History] Lisinopril/Hydrochlorothiazide [Zestoretic 20-12.5 mg Tablet] 1 tab PO DAILY [History] [place]-3/Dha/Epa/Fish Oil [Fish Oil 1,000 mg Softgel] 1 cap PO DAILY 09/08/17 [ History] Umeclidinium [place] [Incruse Ellipta] 1 puff IH DAILY 09/08/17 [History] diazePAM [Valium] 10 mg PO BID 09/08/17 [History] Aspirin Enteric Coated [Aspirin EC] 81 mg PO DAILY tablet. 09/12/17 [Rx] Atorvastatin [Lipitor] 40 mg PO HS #30 tablet 09/12/17 [Rx] Azithromycin [Zithromax] 500 mg PO Q24H #1 tablet 09/12/17 [Rx] Metoprolol [Lopressor] 12.5 mg PO BID #30 tablet 09/12/17 [Rx] predniSONE [PredniSONE] 40 mg PO DAILY #10 tablet 09/12/17 [Rx] Allergies/Adverse Reactions: 3 Allergy/AdvReac Type Severity Reaction Status Date / Time propoxyphene AdvReac Mild Nausea Verified 09/08/17 08:20 naproxen AdvReac See Verified 09/08/17 08:20 Comments Date of admission: 09/08/17 09:14 Primary care physician: Bryan Mai MD Discharging clinician: Butch Griggs Anticipated date of discharge: 09/12/17 - Constitutional Vitals: Temp Pulse Resp BP Pulse Ox 97.9 F 61 15 123/76 100 09/12/17 06:35 09/12/17 06:35 09/12/17 06:35 09/12/17 06:35 09/12/17 06:35 General appearance: Present: A&O X 3, pleasant, answers questions appropriately - Head Head exam: Present: normocephalic - Eye Eye exam: Present: EOMI, conjuntiva pink - ENT ENT exam: Present: mucous membranes moist - Respiratory Respiratory exam: Present: decreased breath sounds, CTAB. Absent: rales, rhonchi, wheezes - Cardiovascular Cardiovascular exam: Present: RRR. Absent: tachycardia - GI/Abdominal GI/Abdominal exam: Present: soft. Absent: tenderness - Extremities Exam Extremities exam: Present: warm. Absent: tenderness - Neurological Exam Neurological exam: Present: alert, oriented X3, no focal deficits - Skin Skin exam: Present: dry, warm - Patient Status Disposition: Home Health Service Condition: Fair Functional capacity at discharge: independent ambulation Overall status at discharge: patient is progressing back to baseline - Discharge Instructions Instructions: Acute Respiratory Distress Syndrome (DC), Diabetes Mellitus Type 2 in Adults (DC), Chronic Obstructive Pulmonary Disease (DC), Chronic Hypertension (DC), Anxiety (DC), Cigarette Smoking and Your Health, Studio Operations Manager (GEN) Follow Up With: Bryan Mai MD [Primary Care Provider] - - Diet and Activity Activity: increase activity as tolerated Diet: advance to your usual diet
--- NOTE | 2017-09-12 08:54 | Physician Discharge Referral ---
Home Health/Hosp Referral Info Transfer to: Home Health Provider in Charge Post Discharge: PCP - Diagnosis (1) Acute and chronic respiratory failure Priority: Primary Status: Resolved (2) COPD exacerbation Priority: Primary Status: Resolved (3) CAD (coronary artery disease) Priority: Secondary Status: Chronic (4) HLD (hyperlipidemia) Priority: Secondary Status: Chronic (5) HTN (hypertension) Priority: Secondary Status: Chronic (6) CKD (chronic kidney disease) stage 3, GFR 30-59 ml/min Priority: Secondary Status: Chronic (7) Anxiety and depression Priority: Secondary Status: Chronic (8) Tobacco abuse Priority: Secondary Status: Chronic (9) Diabetes mellitus Priority: Secondary Status: Chronic (10) Fibromyalgia Priority: Secondary Status: Chronic - Respiratory Orders Oxygen / L per min (Per prior levels) Smoking Cessation: Smoking cessation has been advised. For more information, call the [place] Tobacco Quit Line at 9-574-MRTC-NOW. - Diet/Nutrition Diet/Nutrition Orders: No Concentrated Sweets - Activity Activity Orders: Up ad george - Services Needed Following services are medically necessary services: Nursing, Home Health Aide - Transfer Medications Prescriptions: Atorvastatin [Lipitor] 40 mg PO HS #30 tablet Azithromycin [Zithromax] 500 mg PO Q24H #1 tablet Metoprolol [Lopressor] 12.5 mg PO BID #30 tablet predniSONE [PredniSONE] 40 mg PO DAILY #10 tablet Home Medications: Albuterol Sulfate [Ventolin Hfa] 1 puff IH Q4-6H PRN 09/08/17 [History] Ascorbate Calcium [Vitamin C] 500 mg PO DAILY 09/08/17 [History] Aspirin [Lo-Dose Aspirin EC] 81 mg PO DAILY 09/08/17 [History] Cholecalciferol (D-3) [Vitamin D] 1,000 unit PO DAILY 09/08/17 [History] Cyanocobalamin (Vitamin B-12) [Vitamin B-12] 1,000 mcg PO DAILY 09/08/17 [ History] Duloxetine HCl [Cymbalta] 60 mg PO DAILY 09/08/17 [History] Gabapentin [Neurontin] 100 mg PO TID 09/08/17 [History] Ipratropium/Albuterol Neb [Duoneb] 3 ml IH Q4-6H PRN 09/08/17 [History] Lisinopril/Hydrochlorothiazide [Zestoretic 20-12.5 mg Tablet] 1 tab PO DAILY [History] [place]-3/Dha/Epa/Fish Oil [Fish Oil 1,000 mg Softgel] 1 cap PO DAILY 09/08/17 [ History] Umeclidinium [place] [Incruse Ellipta] 1 puff IH DAILY 09/08/17 [History] diazePAM [Valium] 10 mg PO BID 09/08/17 [History] Aspirin Enteric Coated [Aspirin EC] 81 mg PO DAILY tablet. 09/12/17 [Rx] Atorvastatin [Lipitor] 40 mg PO HS #30 tablet 09/12/17 [Rx] Azithromycin [Zithromax] 500 mg PO Q24H #1 tablet 09/12/17 [Rx] Metoprolol [Lopressor] 12.5 mg PO BID #30 tablet 09/12/17 [Rx] predniSONE [PredniSONE] 40 mg PO DAILY #10 tablet 09/12/17 [Rx] Allergies/Adverse Reactions: 3 Allergy/AdvReac Type Severity Reaction Status Date / Time propoxyphene AdvReac Mild Nausea Verified 09/08/17 08:20 naproxen AdvReac See Verified 09/08/17 08:20 Comments Certification: Further, I certify that my clinical findings support that this patient is homebound (i.e. absences from home require considerable and taxing effort and are for medical reasons or congregational services or infrequently or short duration when for other reasons) because: Homebound Reason: Severity of cardiac or pulmonary status limits activity tolerance Attestation: My signature below is to certify that this patient is under my care and that I, or nurse practitioner, or a physician's marketing assistant working with me, has a face-to -face encounter with this patient.
[2017-09-12] MEDS ORDERED: predniSONE 20 MG TABLET PO SCH (09:00)
[2017-09-12] MEDS: Gabapentin 100 MG CAPSULE PO SCH (09:32)
[2017-09-12] MEDS: Aspirin Enteric Coated 81 MG Tablet PO SCH (09:32)
[2017-09-12] MEDS: Lisinopril-HCTZ 20-12.5mg TABLET PO SCH (09:32)
[2017-09-12] MEDS: Cyanocobalamin (B-12) 1,000 MCG TABLET PO SCH (09:32)
== END 2017-09-12 12:07 | disposition home health service (06) | DRG 190 ==
LOC: 2NENU 03:23 → EMEROO 03:23 → SUATTDRO 06:58 → 2NENU 08:38 → SUATTDRO 09:14
PROVIDERS: ADMIT Internal Medicine Nephrology; ATTEND Internal Medicine